=== PATIENT | female | born 1935 | race Hispanic/Latino ===

== ENCOUNTER 2017-10-29 15:28 | Inpatient (IN) | payer MEDICARE ==
--- NOTE | 2017-10-29 16:42 | Emergency Department Report ---
ED Seizure HPI - General Chief Complaint: Syncope Stated Complaint: SEIZURE LIKE ACTIVITY Time Seen by Provider: 10/29/17 16:00 Source: family, EMS Mode of arrival: Stretcher Limitations: No Limitations - History of Present Illness Initial Comments: Patient is an 82-year-old female that presented to the emergency room with new onset seizures. Patient at this time is an O 4 however does not remember any of the events prior to arriving at the hospital. Family members are at bedside and stated the patient had a seizure-like activity and did not hit her head. Family stated that patient had a postictal stage. Patient denies chest pain or shortness of breath. Patient denies any a headache. Patient denies abdominal pain. Patient states she did not have any symptoms prior to the seizure. During the seizure patient bit her tongue and lip. MD Complaint: seizure, loss of consciousness, shaking -: Sudden Description of Episode: loss of consciousness, tonic-clonic movement Witnessed:: Yes Trauma: Yes (bit tongue) Seizure History: none Place: other (at a car dealership) Possible Precipitating Event: none Associated Symptoms: denies other symptoms, tongue injury Treatments Prior to Arrival: none - Related Data Home Medications Medication Instructions Recorded Confirmed Last Taken Amitriptyline [Elavil] 75 mg PO QHS 09/27/14 09/27/14 Unknown Levothyroxine [Synthroid] 50 mcg PO DAILY 09/27/14 09/27/14 Unknown Lisinopril [Zestril TAB] 09/27/14 09/27/14 Unknown Previous Rx's Medication Instructions Recorded Last Taken Type Enoxaparin [Lovenox] 40 mg SQ QDAY #14 syringe 09/29/14 Unknown Rx Rivaroxaban [Xarelto] 10 mg PO QDAY #20 tab 09/29/14 Unknown Rx Rivaroxaban [Xarelto] 20 mg PO QDAY #14 tab 09/29/14 Unknown Rx Sulfamethoxazole/Trimethoprim 1 each PO BID #14 tablet 09/29/14 Unknown Rx [Bactrim DS TAB] Sulfamethoxazole/Trimethoprim 1 each PO BID #14 tablet 09/29/14 Unknown Rx [Bactrim DS TAB] oxyCODONE /ACETAMINOPHEN [Percocet 1 tab PO Q6HR PRN #30 tablet 09/29/14 Unknown Rx 5/325 mg] oxyCODONE /ACETAMINOPHEN [Percocet 1 tab PO Q6HR PRN #60 tablet 09/29/14 Unknown Rx 5/325 mg] Allergies Allergy/AdvReac Type Severity Reaction Status Date / Time No Known Allergies Allergy Unverified 06/16/14 12:09 ED Review of Systems ROS: Stated complaint: SEIZURE LIKE ACTIVITY Other details as noted in HPI Comment: All other systems reviewed and negative Constitutional: denies: chills, fever Eyes: denies: eye pain, eye discharge, vision change ENT: denies: ear pain, throat pain Respiratory: denies: cough, shortness of breath, wheezing Cardiovascular: denies: chest pain, palpitations Endocrine: no symptoms reported Gastrointestinal: denies: abdominal pain, nausea, diarrhea Genitourinary: denies: urgency, dysuria, discharge Musculoskeletal: denies: back pain, joint swelling, arthralgia Skin: denies: rash, lesions Neurological: denies: headache, weakness, paresthesias Psychiatric: denies: anxiety, depression Hematological/Lymphatic: denies: easy bleeding, easy bruising ED Past Medical Hx - Past Medical History Previous Medical History?: Yes Hx Hypertension: Yes Hx CVA: No Hx Heart Attack/AMI: No Hx Congestive Heart Failure: No Hx GERD: Yes Hx Liver Disease: No Hx Renal Disease: No Hx of Cancer: No Hx Arthritis: No Hx Seizures: No Hx Asthma: No Hx COPD: No Additional medical history: "balance problems". Hypothyroid - Surgical History Past Surgical History?: Yes Additional Surgical History: partial thyroidectomy, hysterectomy, tonsilectomy, left femur surgery - Family History Family history: no significant - Social History Smoking Status: Never Smoker Substance Use Type: None - Medications Home Medications: Home Medications Medication Instructions Recorded Confirmed Last Taken Type Amitriptyline [Elavil] 75 mg PO QHS 09/27/14 09/27/14 Unknown History Levothyroxine [Synthroid] 50 mcg PO DAILY 09/27/14 09/27/14 Unknown History Lisinopril [Zestril TAB] 09/27/14 09/27/14 Unknown History Enoxaparin [Lovenox] 40 mg SQ QDAY #14 syringe 09/29/14 Unknown Rx Rivaroxaban [Xarelto] 10 mg PO QDAY #20 tab 09/29/14 Unknown Rx Rivaroxaban [Xarelto] 20 mg PO QDAY #14 tab 09/29/14 Unknown Rx Sulfamethoxazole/Trimethoprim 1 each PO BID #14 tablet 09/29/14 Unknown Rx [Bactrim DS TAB] Sulfamethoxazole/Trimethoprim 1 each PO BID #14 tablet 09/29/14 Unknown Rx [Bactrim DS TAB] oxyCODONE /ACETAMINOPHEN [Percocet 1 tab PO Q6HR PRN #30 tablet 09/29/14 Unknown Rx 5/325 mg] oxyCODONE /ACETAMINOPHEN [Percocet 1 tab PO Q6HR PRN #60 tablet 09/29/14 Unknown Rx 5/325 mg] ED Physical Exam - General Limitations: No Limitations General appearance: alert, in no apparent distress - Head Head exam: Present: atraumatic, normocephalic - Eye Eye exam: Present: normal appearance - ENT ENT exam: Present: mucous membranes moist - Neck Neck exam: Present: normal inspection - Respiratory Respiratory exam: Present: normal lung sounds bilaterally. Absent: respiratory distress - Cardiovascular Cardiovascular Exam: Present: regular rate, normal rhythm. Absent: systolic murmur, diastolic murmur, rubs, gallop - GI/Abdominal GI/Abdominal exam: Present: soft, normal bowel sounds - Extremities Exam Extremities exam: Present: normal inspection - Back Exam Back exam: Present: normal inspection - Neurological Exam Neurological exam: Present: alert, oriented X3 - Psychiatric Psychiatric exam: Present: normal affect, normal mood - Skin Skin exam: Present: warm, dry, intact, normal color. Absent: rash ED Course Vital Signs 10/29/17 10/29/17 10/29/17 15:30 15:36 15:45 Temperature 97.4 F L Pulse Rate 100 H 102 H Respiratory 22 25 H Rate Blood Pressure 182/108 O2 Sat by Pulse 97 97 96 Oximetry 10/29/17 10/29/17 10/29/17 15:55 16:00 16:15 Temperature Pulse Rate 96 H 91 H Respiratory 22 21 18 Rate Blood Pressure 186/109 187/107 O2 Sat by Pulse 97 95 97 Oximetry 10/29/17 10/29/17 10/29/17 16:30 16:45 17:00 Temperature Pulse Rate 92 H 92 H 87 Respiratory 15 14 17 Rate Blood Pressure 171/97 174/90 164/91 O2 Sat by Pulse 97 96 96 Oximetry 10/29/17 10/29/17 10/29/17 17:27 17:31 17:45 Temperature Pulse Rate 95 H 96 H 97 H Respiratory 16 23 19 Rate Blood Pressure 164/91 201/105 181/110 O2 Sat by Pulse 97 95 95 Oximetry 10/29/17 10/29/17 10/29/17 18:00 18:15 18:30 Temperature Pulse Rate 91 H 91 H 91 H Respiratory 11 L 14 17 Rate Blood Pressure 183/106 173/104 187/102 O2 Sat by Pulse 95 96 95 Oximetry 10/29/17 10/29/17 10/29/17 18:45 19:00 19:15 Temperature Pulse Rate 94 H 100 H 94 H Respiratory 16 13 14 Rate Blood Pressure 184/96 182/105 193/112 O2 Sat by Pulse 97 96 96 Oximetry 10/29/17 19:30 Temperature Pulse Rate 87 Respiratory 22 Rate Blood Pressure 162/108 O2 Sat by Pulse 96 Oximetry - Reevaluation(s) Reevaluation #1: All results discussed with patient. Will continue to monitor blood pressure and try to bring down blood pressure with medications. Hospitalist consult for admission, agreed to admit. 10/29/17 18:59 ED Medical Decision Making - Lab Data Result diagrams: 10/29/17 15:50 10/29/17 16:20 - EKG Data EKG shows normal: sinus rhythm, axis, intervals, QRS complexes, ST-T waves Rate: tachycardia - Radiology Data Radiology results: report reviewed No acute findings - Medical Decision Making She is an 82-year-old female with new onset seizures. Will admit patient for further evaluation. - Differential Diagnosis new onset sz. htn. stress/med reaction. Critical care attestation.: If time is entered above; I have spent that time in minutes in the direct care of this critically ill patient, excluding procedure time. ED Disposition Clinical Impression: New onset seizure, Hypertension Disposition: OP ADMIT IP TO THIS HOSP Is pt being admited?: Yes Does the pt Need Aspirin: No Condition: Serious Time of Disposition: 19:02
[2017-10-29 16:58] LABS: Albumin 4.5 g/dL (3.9-5); BUN/Creatinine Ratio 20; Blood Urea Nitrogen 16 mg/dL (7-17); Calcium 9.5 mg/dL (8.4-10.2); Hemolysis Index 147
[2017-10-29 16:59] LABS: Creatine Kinase MB 2.2 ng/mL (0.0-4.0)
[2017-10-29 17:00] LABS: Alanine Aminotransferase 16 units/L (7-56)
[2017-10-29 17:03] LABS: Basophils % (Auto) 0.4 % (0.0-1.8); Eosinophils # (Auto) 0.2 K/mm3 (0.0-0.4); Eosinophils % (Auto) 3.3 % (0.0-4.3); Hematocrit 34.6 % (30.3-42.9); Hemoglobin 11.7 gm/dl (10.1-14.3); Lymphocytes # (Auto) 2.2 K/mm3 (1.2-5.4); Lymphocytes % (Auto) 33.7 % (13.4-35.0); Mean Corpuscular HGB Conc 34 % (30-34); Mean Corpuscular Hemoglobin 32 pg (28-32); Mean Corpuscular Volume 94 fl (79-97); Monocytes # (Auto) 0.5 K/mm3 (0.0-0.8); Monocytes % (Auto) 7.5 % (0.0-7.3); Platelet Count 319 K/mm3 (140-440); Red Blood Count 3.67 M/mm3 (3.65-5.03); Red Cell Distribution Width 14.1 % (13.2-15.2)
--- NOTE | 2017-10-29 17:36 | Cat Scan Report ---
FINAL REPORT EXAM: CT HEAD/BRAIN WO CON HISTORY: sz TECHNIQUE: CT examination of the head without IV contrast PRIORS: None. FINDINGS: Slight mucosal thickening left maxillary sinus. Minimal mucosal thickening ethmoid sinuses. Small chronic appearing lacunar infarct in left basal ganglia. No acute air-fluid level visualized in the included air-filled sinuses. Bone windows demonstrate no acute fracture. There is ventricular and sulcal prominence compatible with global cerebrocortical atrophy. The brain contains no mass, mass effect, hemorrhage, or acute infarct. There is no extra-axial intracranial bleed, brain bleed, or midline shift. IMPRESSION: No acute CVA, intracranial bleed, or brain mass Small chronic appearing lacunar infarct in left basal ganglia
[2017-10-29 18:07] LABS: Bacteria,Urine 1+ /HPF (Negative); Bilirubin,Urine NEG (Negative); Blood,Urine SM (Negative); Color,Urine Straw (Yellow); Mucus,Urine FEW /HPF; Protein,Urine <15 mg/dL mg/dL (Negative); Urobilinogen,Urine < 2.0 mg/dL (<2.0)
[2017-10-29] MEDS ORDERED: CATAPRES PO ONE (18:46)
[2017-10-29] MEDS ORDERED: APRESOLINE IV ONE (19:28)
[2017-10-29] MEDS ORDERED: NACL 0.9% 1000 ML 1,000 ML IV ONE (21:16)
--- NOTE | 2017-10-29 23:42 | Event Note ---
Date: 10/29/17
--- NOTE | 2017-10-29 23:42 | History and Physical Report ---
History of Present Illness Date of examination: 10/29/17 Date of admission: 10/29/17 19:51 Chief complaint: Chief complaint: New onset seizures 1 couple of hours ago History of present illness: History of Present Illness Patient is an 82-year-old female that presented to the emergency room with new onset seizures. Patient at this time is an O 4 however does not remember any of the events prior to arriving at the hospital. Family members are at bedside and stated the patient had a seizure-like activity and did not hit her head. Family stated that patient had a postictal stage. Patient denies chest pain or shortness of breath. Patient denies any a headache. Patient denies abdominal pain. Patient states she did not have any symptoms prior to the seizure. During the seizure patient bit her tongue and lip. - Past Medical History Previous Medical History?: Yes Hx Hypertension: Yes Hx GERD: Yes Additional medical history: "balance problems". Hypothyroid - Surgical History Past Surgical History?: Yes Additional Surgical History: partial thyroidectomy, hysterectomy, tonsilectomy, left femur surgery - Family History Family history: no significant - Social History Smoking Status: Never Smoker Substance Use Type: None - Medications Home Medications: Home Medications Medication Instructions Recorded Confirmed Last Taken Type Amitriptyline [Elavil] 75 mg PO QHS 09/27/14 09/27/14 Unknown History Levothyroxine [Synthroid] 50 mcg PO DAILY 09/27/14 09/27/14 Unknown History Lisinopril [Zestril TAB] 09/27/14 09/27/14 Unknown History Enoxaparin [Lovenox] 40 mg SQ QDAY #14 syringe 09/29/14 Unknown Rx Rivaroxaban [Xarelto] 10 mg PO QDAY #20 tab 09/29/14 Unknown Rx Rivaroxaban [Xarelto] 20 mg PO QDAY #14 tab 09/29/14 Unknown Rx Sulfamethoxazole/Trimethoprim 1 each PO BID #14 tablet 09/29/14 Unknown Rx [Bactrim DS TAB] Sulfamethoxazole/Trimethoprim 1 each PO BID #14 tablet 09/29/14 Unknown Rx [Bactrim DS TAB] oxyCODONE /ACETAMINOPHEN [Percocet 1 tab PO Q6HR PRN #30 tablet 09/29/14 Unknown Rx 5/325 mg] oxyCODONE /ACETAMINOPHEN [Percocet 1 tab PO Q6HR PRN #60 tablet 09/29/14 Unknown Rx 5/325 mg] Review of Systems ROS: Stated complaint: SEIZURE LIKE ACTIVITY Other details as noted in HPI Comment: All other systems reviewed and negative Constitutional: denies: chills, fever Eyes: denies: eye pain, eye discharge, vision change ENT: denies: ear pain, throat pain Respiratory: denies: cough, shortness of breath, wheezing Cardiovascular: denies: chest pain, palpitations Endocrine: no symptoms reported Gastrointestinal: denies: abdominal pain, nausea, diarrhea Genitourinary: denies: urgency, dysuria, discharge Musculoskeletal: denies: back pain, joint swelling, arthralgia Skin: denies: rash, lesions Neurological: denies: headache, weakness, paresthesias Psychiatric: denies: anxiety, depression Hematological/Lymphatic: denies: easy bleeding, easy bruising Medications and Allergies Allergies Allergy/AdvReac Type Severity Reaction Status Date / Time No Known Allergies Allergy Unverified 06/16/14 12:09 Home Medications Medication Instructions Recorded Confirmed Last Taken Type Carvedilol [Coreg] 6.25 mg PO BID 10/29/17 10/29/17 10/29/17 History Levothyroxine [Synthroid] 100 mcg PO QAM 10/29/17 10/29/17 10/29/17 History Losartan/Hydrochlorothiazide 1 tab PO DAILY 10/29/17 10/29/17 Unknown History [Losartan-Hctz 50-12.5 mg Tab] Nortriptyline [Pamelor] 10 mg PO QHS 10/29/17 10/29/17 Unknown History cloNIDine [Catapres] 0.1 mg PO BID 10/29/17 10/29/17 10/29/17 History Exam - Constitutional Vitals: Temp Pulse Resp BP Pulse Ox 98.7 F 71 18 84/46 95 10/29/17 21:13 10/29/17 21:13 10/29/17 21:13 10/29/17 21:13 10/29/17 21:13 General appearance: Present: no acute distress, well-nourished - EENT Eyes: Present: PERRL ENT: hearing intact, clear oral mucosa - Neck Neck: Present: supple, normal ROM - Respiratory Respiratory effort: normal Respiratory: bilateral: CTA - Cardiovascular Heart rate: 80 Rhythm: regular Heart Sounds: Present: S1 & S2. Absent: rub, click - Extremities Extremities: pulses symmetrical, No edema Peripheral Pulses: within normal limits - Abdominal General gastrointestinal: Present: soft, non-tender, non-distended, normal bowel sounds Female genitourinary: Present: normal - Integumentary Integumentary: Present: clear, warm, dry - Musculoskeletal Musculoskeletal: gait normal, strength equal bilaterally - Psychiatric Psychiatric: appropriate mood/affect, intact judgment & insight - Neurologic Neurologic: CNII-XII intact, moves all extremities - Allied Health Allied health notes reviewed: nursing, case management Results - Labs CBC & Chem 7: 10/29/17 15:50 10/29/17 16:20 Labs: Laboratory Last Values WBC 6.5 K/mm3 (4.5-11.0) 10/29/17 15:50 RBC 3.67 M/mm3 (3.65-5.03) 10/29/17 15:50 Hgb 11.7 gm/dl (10.1-14.3) 10/29/17 15:50 Hct 34.6 % (30.3-42.9) 10/29/17 15:50 MCV 94 fl (79-97) 10/29/17 15:50 MCH 32 pg (28-32) 10/29/17 15:50 MCHC 34 % (30-34) 10/29/17 15:50 RDW 14.1 % (13.2-15.2) 10/29/17 15:50 Plt Count 319 K/mm3 (140-440) 10/29/17 15:50 Lymph % (Auto) 33.7 % (13.4-35.0) 10/29/17 15:50 [place] % (Auto) 7.5 % (0.0-7.3) H 10/29/17 15:50 Eos % (Auto) 3.3 % (0.0-4.3) 10/29/17 15:50 Baso % (Auto) 0.4 % (0.0-1.8) 10/29/17 15:50 Lymph # 2.2 K/mm3 (1.2-5.4) 10/29/17 15:50 [place] # 0.5 K/mm3 (0.0-0.8) 10/29/17 15:50 Eos # 0.2 K/mm3 (0.0-0.4) 10/29/17 15:50 Baso # 0.0 K/mm3 (0.0-0.1) 10/29/17 15:50 Seg Neutrophils % 55.1 % (40.0-70.0) 10/29/17 15:50 Seg Neutrophils # 3.6 K/mm3 (1.8-7.7) 10/29/17 15:50 Sodium 134 mmol/L (137-145) L 10/29/17 16:20 Potassium 4.8 mmol/L (3.6-5.0) 10/29/17 16:20 Chloride 90.9 mmol/L (98-107) L 10/29/17 16:20 Carbon Dioxide 21 mmol/L (22-30) L 10/29/17 16:20 Anion Gap 27 mmol/L 10/29/17 16:20 BUN 16 mg/dL (7-17) 10/29/17 16:20 Creatinine 0.8 mg/dL (0.7-1.2) 10/29/17 16:20 Estimated GFR > 60 ml/min 10/29/17 16:20 BUN/Creatinine Ratio 20 % 10/29/17 16:20 Glucose 109 mg/dL (65-100) H 10/29/17 16:20 Calcium 9.5 mg/dL (8.4-10.2) 10/29/17 16:20 Total Bilirubin 0.30 mg/dL (0.1-1.2) 10/29/17 16:20 AST 28 units/L (5-40) 10/29/17 16:20 ALT 16 units/L (7-56) 10/29/17 16:20 Alkaline Phosphatase 63 units/L (35-129) 10/29/17 16:20 Total Creatine Kinase 64 units/L (30-135) 10/29/17 15:50 CK-MB (CK-2) 2.2 ng/mL (0.0-4.0) 10/29/17 15:50 CK-MB (CK-2) Rel Index 3.4 (0-4) 10/29/17 15:50 Troponin T < 0.010 ng/mL (0.00-0.029) 10/29/17 16:20 Total Protein 7.5 g/dL (6.3-8.2) 10/29/17 16:20 Albumin 4.5 g/dL (3.9-5) 10/29/17 16:20 Albumin/Globulin Ratio 1.5 % 10/29/17 16:20 Urine Color Straw (Yellow) 10/29/17 17:29 Urine Turbidity Clear (Clear) 10/29/17 17:29 Urine pH 6.0 (5.0-7.0) 10/29/17 17:29 Ur Specific Check 1.008 (1.003-1.030) 10/29/17 17:29 Urine Protein <15 mg/dl mg/dL (Negative) 10/29/17 17:29 Urine Glucose (UA) Neg mg/dL (Negative) 10/29/17 17:29 Urine Ketones Neg mg/dL (Negative) 10/29/17 17:29 Urine Blood Sm (Negative) 10/29/17 17:29 Urine Nitrite Neg (Negative) 10/29/17 17:29 Urine Bilirubin Neg (Negative) 10/29/17 17:29 Urine Urobilinogen < 2.0 mg/dL (<2.0) 10/29/17 17:29 Ur Leukocyte Esterase Tr (Negative) 10/29/17 17:29 Urine WBC (Auto) 2.0 /HPF (0.0-6.0) 10/29/17 17:29 Urine RBC (Auto) 3.0 /HPF (0.0-6.0) 10/29/17 17:29 U Epithel Cells (Auto) 2.0 /HPF (0-13.0) 10/29/17 17:29 Urine Bacteria (Auto) 1+ /HPF (Negative) 10/29/17 17:29 Urine Mucus Few /HPF 10/29/17 17:29 - Imaging and Cardiology EKG: report reviewed Imaging and Cardiology: CT head No acute CVA No intracranial bleed No brain mass Assessment and Plan Advance Directives: Yes (full code) VTE prophylaxis?: Chemical Plan of care discussed with patient/family: Yes - Patient Problems (1) New onset seizure Current Visit: Yes Status: Acute Plan to address problem: Patient started on IV Keppra MRI brain ordered Neuro consult requested (2) Hypertension, benign Current Visit: No Status: Chronic Plan to address problem: Continue antihypertensives (3) Hypothyroid Current Visit: No Status: Chronic Qualifiers: Hypothyroidism type: acquired Qualified Code(s): E03.9 - Hypothyroidism, unspecified Plan to address problem: Continue Synthroid Check TSH (4) Hyponatremia Current Visit: Yes Status: Acute Plan to address problem: Very mild. Should correct with IV fluids (5) DVT prophylaxis Current Visit: Yes Status: Acute Plan to address problem: On heparin
[2017-10-30] MEDS: COREG PO SCH ×3 (00:36→22:57)
[2017-10-30] MEDS: CATAPRES PO SCH ×3 (00:36→22:57)
[2017-10-30] MEDS: KEPPRA 750 MG in D5W 100 ML IV SCH ×3 (00:44→22:57)
[2017-10-30] MEDS: SYNTHROID PO SCH (05:21)
[2017-10-30] MEDS ORDERED: SYNTHROID PO SCH (10:00)
[2017-10-30] MEDS ORDERED: HCTZ PO SCH (10:00)
[2017-10-30] MEDS ORDERED: NON-FORMULARY (Losartan/Hydrochlorothiazide [Losartan-Hctz 50-12.5 Mg Tab] 1 TAB) PO SCH (10:00)
[2017-10-30] MEDS: COZAAR PO SCH (11:00)
--- NOTE | 2017-10-30 11:34 | Consultation ---
History of Present Illness Consult date: 10/30/17 Requesting physician: MIMI PALACIO Reason for Consult: New onset seizure. Chief complaint: Seizure. History of present illness: 82-year-old right handed female with a past medical history of hypothyroid and HTN presented to the emergency room with new onset seizures. She was in a car shop for tires replacement. Then, no aura she was in seizure like activities. She bit her tongue on the left side. It lasted minutes and she may be postictal for hours. She had one similar seizure like activities 15 years ago. She had seizure work up and negative, son she didn't take seizure medicine. Past History Past Medical History: other (hypothyroid.) Past Surgical History: hysterectomy, tonsillectomy, Other (left leg fracture and surgical procedure.) Social history: no significant social history Family history: hypertension Medications and Allergies Allergies Allergy/AdvReac Type Severity Reaction Status Date / Time No Known Allergies Allergy Unverified 06/16/14 12:09 Home Medications Medication Instructions Recorded Confirmed Last Taken Type Carvedilol [Coreg] 6.25 mg PO BID 10/29/17 10/29/17 10/29/17 History Levothyroxine [Synthroid] 100 mcg PO QAM 10/29/17 10/29/17 10/29/17 History Losartan/Hydrochlorothiazide 1 tab PO DAILY 10/29/17 10/29/17 Unknown History [Losartan-Hctz 50-12.5 mg Tab] Nortriptyline [Pamelor] 10 mg PO QHS 10/29/17 10/29/17 Unknown History cloNIDine [Catapres] 0.1 mg PO BID 10/29/17 10/29/17 10/29/17 History Active Meds: Active Medications Carvedilol (Coreg) 6.25 mg PO BID [facility] Last Admin: 10/30/17 11:00 Dose: Not Given Clonidine HCl (Catapres) 0.1 mg PO BID [facility] Last Admin: 10/30/17 10:59 Dose: Not Given Levetiracetam 750 mg/ Dextrose 107.5 mls @ 400 mls/hr IV Q12HR [facility] Last Admin: 10/30/17 10:57 Dose: 400 mls/hr Levothyroxine Sodium (Synthroid) 100 mcg PO DAILY@0600 [facility] Last Admin: 10/30/17 05:21 Dose: 100 mcg Losartan Potassium (Cozaar) 50 mg PO QDAY [facility] Last Admin: 10/30/17 11:00 Dose: Not Given Nortriptyline HCl (Pamelor) 10 mg PO QHS [facility] Review of Systems All systems: negative (left tongue bitten bruise. All otehr 10 points of systems are reviewed and negative.) Physical Examination - Vital Signs Vital Signs: Vital Signs Temp Pulse Resp BP Pulse Ox 97.4 F L 100 H 22 182/108 97 10/29/17 15:30 10/29/17 15:30 10/29/17 15:30 10/29/17 15:30 10/29/17 15:30 - Constitutional General appearance: comfortable - EENT EENT: Present: PERRL, mucous membranes moist - Respiratory Respiratory: Present: lungs clear, normal breath sounds - Cardiovascular Cardiovascular: Present: regular rate, no murmurs Extremities: Present: no peripheral edema bilatateraly, no clubbing, cyanosis, no inflammation - Gastrointestinal Gastrointestinal: Present: soft, non-tender, non-distended - Integumentary Integumentary: Present: normal - Neurologic Cranial nerve examination: PERRL, EOMI, intact Speech examination: intact Sensorimotor examination: intact Detailed motor examination: grossly full strength in Detailed sensory examination: intact Reflexes: 1+: ankle, bicep, knee, tricep - Additional Exam Additional Exam: Left side tongue bitten bruise. Rest normal examination. Results - Laboratory Findings CBC and BMP: 10/29/17 15:50 10/29/17 16:20 Abnormal Lab Findings: Abnormal Labs 10/29/17 10/29/17 15:50 16:20 [place] % (Auto) 7.5 H Sodium 134 L Chloride 90.9 L Carbon Dioxide 21 L Glucose 109 H Assessment and Plan 1. Seizure. She had one 15 years ago. This is secondary one. Probably focal seizure with conscious impairment. 2. Her primary team put her on Keppra on admission. Continue Keppra. 3. Brain MRI without contrast and EEG. 4. Don't drive a vehicle or operate heavy machinery for 6 months, always seizure precaution. 5. HTN. Controlled. Medicine. 6. Treat risk factors of CVA. Suggest Aspirin 81 mg daily if no contraindication. Carotid Doppler. 7. Plan discussed with her, her son and her hospitalist. 8. Please call [facility] neurologist if further suggestion needed. 9. If D/C, F/U with neurology in 6-8 weeks.
--- NOTE | 2017-10-30 16:33 | Progress Note ---
Assessment and Plan Assessment and plan: Patient is a 82-year-old woman with history of hypertension and hypothyroidism who presents with new onset seizures -Status epilepticus suspected resolved with initiation of Keppra: Continue Keppra -New-onset seizures: Seen by neurologist, Dr. Leigh who recommended MRI and EEG, but did not order the EEG because it is not available -HTN urgency, now low: low salt diet, adjsuted antihypertensives, gentle hydration -Hypothyroidism: treat with synthroid History Interval history: Patient was seen and examined. Follow-up on current diagnosis of seizures, resolved. Overnight uneventful. Patient denies any chest pain, shortness breath, nausea/vomiting or severe headaches. Imaging, nursing note, chart, labs and old chart reviewed. Discussed with patient. Hospitalist Physical - Physical exam Narrative exam: GEN: WDWN, NAD, AWAKE, ALERT, ORIENTATED 3 HEENT: NCAT, EOMI, PERRL, OP Clear, she bit her tongue, left lateral side not bleeding NECK: supple, no adenopathy, no thyromegaly, no JVD CVS/HEART: RRR, NORMAL S1S2, pulses present bilaterally CHEST/LUNGS: CTA B, Symmetrical chest expansion, good air entry bilaterally GI/Abdomen: soft, NTND, good bowel sounds, no guarding or rebound /Bladder: no suprapubic tenderness, no CVA or paraspinal tenderness EXT/Skin: no c/c/e, no obvious rash MSK: FROM x 4 Neuro: CN 2-12 grossly intact, no new focal deficits Psych: calm - Constitutional Vitals: Temp Pulse Resp BP Pulse Ox 98.4 F 73 18 116/58 96 10/30/17 09:12 10/30/17 11:00 10/30/17 09:12 10/30/17 11:00 10/30/17 09:12 General appearance: Present: no acute distress, well-nourished Results - Labs CBC & Chem 7: 10/29/17 15:50 10/29/17 16:20 Labs: Laboratory Last Values WBC 6.5 K/mm3 (4.5-11.0) 10/29/17 15:50 RBC 3.67 M/mm3 (3.65-5.03) 10/29/17 15:50 Hgb 11.7 gm/dl (10.1-14.3) 10/29/17 15:50 Hct 34.6 % (30.3-42.9) 10/29/17 15:50 MCV 94 fl (79-97) 10/29/17 15:50 MCH 32 pg (28-32) 10/29/17 15:50 MCHC 34 % (30-34) 10/29/17 15:50 RDW 14.1 % (13.2-15.2) 10/29/17 15:50 Plt Count 319 K/mm3 (140-440) 10/29/17 15:50 Lymph % (Auto) 33.7 % (13.4-35.0) 10/29/17 15:50 [place] % (Auto) 7.5 % (0.0-7.3) H 10/29/17 15:50 Eos % (Auto) 3.3 % (0.0-4.3) 10/29/17 15:50 Baso % (Auto) 0.4 % (0.0-1.8) 10/29/17 15:50 Lymph # 2.2 K/mm3 (1.2-5.4) 10/29/17 15:50 [place] # 0.5 K/mm3 (0.0-0.8) 10/29/17 15:50 Eos # 0.2 K/mm3 (0.0-0.4) 10/29/17 15:50 Baso # 0.0 K/mm3 (0.0-0.1) 10/29/17 15:50 Seg Neutrophils % 55.1 % (40.0-70.0) 10/29/17 15:50 Seg Neutrophils # 3.6 K/mm3 (1.8-7.7) 10/29/17 15:50 Sodium 134 mmol/L (137-145) L 10/29/17 16:20 Potassium 4.8 mmol/L (3.6-5.0) 10/29/17 16:20 Chloride 90.9 mmol/L (98-107) L 10/29/17 16:20 Carbon Dioxide 21 mmol/L (22-30) L 10/29/17 16:20 Anion Gap 27 mmol/L 10/29/17 16:20 BUN 16 mg/dL (7-17) 10/29/17 16:20 Creatinine 0.8 mg/dL (0.7-1.2) 10/29/17 16:20 Estimated GFR > 60 ml/min 10/29/17 16:20 BUN/Creatinine Ratio 20 % 10/29/17 16:20 Glucose 109 mg/dL (65-100) H 10/29/17 16:20 Calcium 9.5 mg/dL (8.4-10.2) 10/29/17 16:20 Total Bilirubin 0.30 mg/dL (0.1-1.2) 10/29/17 16:20 AST 28 units/L (5-40) 10/29/17 16:20 ALT 16 units/L (7-56) 10/29/17 16:20 Alkaline Phosphatase 63 units/L (35-129) 10/29/17 16:20 Total Creatine Kinase 64 units/L (30-135) 10/29/17 15:50 CK-MB (CK-2) 2.2 ng/mL (0.0-4.0) 10/29/17 15:50 CK-MB (CK-2) Rel Index 3.4 (0-4) 10/29/17 15:50 Troponin T < 0.010 ng/mL (0.00-0.029) 10/29/17 16:20 Total Protein 7.5 g/dL (6.3-8.2) 10/29/17 16:20 Albumin 4.5 g/dL (3.9-5) 10/29/17 16:20 Albumin/Globulin Ratio 1.5 % 10/29/17 16:20 Urine Color Straw (Yellow) 10/29/17 17:29 Urine Turbidity Clear (Clear) 10/29/17 17:29 Urine pH 6.0 (5.0-7.0) 10/29/17 17:29 Ur Specific [place] 1.008 (1.003-1.030) 10/29/17 17:29 Urine Protein <15 mg/dl mg/dL (Negative) 10/29/17 17:29 Urine Glucose (UA) Neg mg/dL (Negative) 10/29/17 17:29 Urine Ketones Neg mg/dL (Negative) 10/29/17 17:29 Urine Blood Sm (Negative) 10/29/17 17:29 Urine Nitrite Neg (Negative) 10/29/17 17:29 Urine Bilirubin Neg (Negative) 10/29/17 17:29 Urine Urobilinogen < 2.0 mg/dL (<2.0) 10/29/17 17:29 Ur Leukocyte Esterase Tr (Negative) 10/29/17 17:29 Urine WBC (Auto) 2.0 /HPF (0.0-6.0) 10/29/17 17:29 Urine RBC (Auto) 3.0 /HPF (0.0-6.0) 10/29/17 17: U Epithel Cells (Auto) 2.0 /HPF (0-13.0) 10/29/17 17:29 Urine Bacteria (Auto) 1+ /HPF (Negative) 10/29/17 17: Urine Mucus Few /HPF 10/29/17 17:29
[2017-10-30] MEDS: PROTONIX PO SCH (20:33)
[2017-10-30] MEDS ORDERED: PAMELOR PO SCH (22:00)
[2017-10-31] MEDS: SYNTHROID PO SCH (06:42)
[2017-10-31 09:26] VITALS: BP 128/75
[2017-10-31] MEDS: CATAPRES PO SCH (10:13)
[2017-10-31] MEDS: COREG PO SCH (10:14)
[2017-10-31] MEDS: COZAAR PO SCH (10:15)
[2017-10-31] MEDS: PROTONIX PO SCH (10:16)
--- NOTE | 2017-10-31 11:11 | Progress Note ---
Assessment and Plan Assessment and plan: Patient is a 82-year-old woman with history of hypertension and hypothyroidism who presents with new onset seizures -Status epilepticus suspected resolved with initiation of Keppra: Continue Keppra -New-onset seizures: Seen by neurologist, Dr. Leigh who recommended MRI and EEG, but did not order the EEG because it is not available and he is not coming back in awhile. -HTN urgency, now low: low salt diet, adjsuted antihypertensives, gentle hydration -Hypothyroidism: treat with synthroid MRI brain still pending, if negative for stroke will d/c home, with Neurologist referral. History Interval history: Patient was seen and examined. Follow-up on current diagnosis of seizures, resolved. Overnight uneventful. Patient denies any chest pain, shortness breath, nausea/vomiting or severe headaches. Imaging, nursing note, chart, labs and old chart reviewed. Discussed with patient. Hospitalist Physical - Physical exam Narrative exam: GEN: WDWN, NAD, AWAKE, ALERT, ORIENTATED 3 HEENT: NCAT, EOMI, PERRL, OP Clear, she bit her tongue, left lateral side not bleeding NECK: supple, no adenopathy, no thyromegaly, no JVD CVS/HEART: RRR, NORMAL S1S2, pulses present bilaterally CHEST/LUNGS: CTA B, Symmetrical chest expansion, good air entry bilaterally GI/Abdomen: soft, NTND, good bowel sounds, no guarding or rebound /Bladder: no suprapubic tenderness, no CVA or paraspinal tenderness EXT/Skin: no c/c/e, no obvious rash MSK: FROM x 4 Neuro: CN 2-12 grossly intact, no new focal deficits Psych: calm - Constitutional Vitals: Temp Pulse Resp BP Pulse Ox 98.5 F 62 18 128/75 95 10/31/17 09:16 10/31/17 10:15 10/31/17 09:16 10/31/17 10:15 10/31/17 09:16 General appearance: Present: no acute distress, well-nourished Results - Labs CBC & Chem 7: 10/29/17 15:50 10/29/17 16:20 Labs: Laboratory Last Values WBC 6.5 K/mm3 (4.5-11.0) 10/29/17 15:50 RBC 3.67 M/mm3 (3.65-5.03) 10/29/17 15:50 Hgb 11.7 gm/dl (10.1-14.3) 10/29/17 15:50 Hct 34.6 % (30.3-42.9) 10/29/17 15:50 MCV 94 fl (79-97) 10/29/17 15:50 MCH 32 pg (28-32) 10/29/17 15:50 MCHC 34 % (30-34) 10/29/17 15:50 RDW 14.1 % (13.2-15.2) 10/29/17 15:50 Plt Count 319 K/mm3 (140-440) 10/29/17 15:50 Lymph % (Auto) 33.7 % (13.4-35.0) 10/29/17 15:50 [place] % (Auto) 7.5 % (0.0-7.3) H 10/29/17 15:50 Eos % (Auto) 3.3 % (0.0-4.3) 10/29/17 15:50 Baso % (Auto) 0.4 % (0.0-1.8) 10/29/17 15:50 Lymph # 2.2 K/mm3 (1.2-5.4) 10/29/17 15:50 [place] # 0.5 K/mm3 (0.0-0.8) 10/29/17 15:50 Eos # 0.2 K/mm3 (0.0-0.4) 10/29/17 15:50 Baso # 0.0 K/mm3 (0.0-0.1) 10/29/17 15:50 Seg Neutrophils % 55.1 % (40.0-70.0) 10/29/17 15:50 Seg Neutrophils # 3.6 K/mm3 (1.8-7.7) 10/29/17 15:50 Sodium 134 mmol/L (137-145) L 10/29/17 16:20 Potassium 4.8 mmol/L (3.6-5.0) 10/29/17 16:20 Chloride 90.9 mmol/L (98-107) L 10/29/17 16:20 Carbon Dioxide 21 mmol/L (22-30) L 10/29/17 16:20 Anion Gap 27 mmol/L 10/29/17 16:20 BUN 16 mg/dL (7-17) 10/29/17 16:20 Creatinine 0.8 mg/dL (0.7-1.2) 10/29/17 16:20 Estimated GFR > 60 ml/min 10/29/17 16:20 BUN/Creatinine Ratio 20 % 10/29/17 16:20 Glucose 109 mg/dL (65-100) H 10/29/17 16:20 Calcium 9.5 mg/dL (8.4-10.2) 10/29/17 16:20 Total Bilirubin 0.30 mg/dL (0.1-1.2) 10/29/17 16:20 AST 28 units/L (5-40) 10/29/17 16:20 ALT 16 units/L (7-56) 10/29/17 16:20 Alkaline Phosphatase 63 units/L (35-129) 10/29/17 16:20 Total Creatine Kinase 64 units/L (30-135) 10/29/17 15:50 CK-MB (CK-2) 2.2 ng/mL (0.0-4.0) 10/29/17 15:50 CK-MB (CK-2) Rel Index 3.4 (0-4) 10/29/17 15:50 Troponin T < 0.010 ng/mL (0.00-0.029) 10/29/17 16:20 Total Protein 7.5 g/dL (6.3-8.2) 10/29/17 16:20 Albumin 4.5 g/dL (3.9-5) 10/29/17 16:20 Albumin/Globulin Ratio 1.5 % 10/29/17 16:20 Urine Color Straw (Yellow) 10/29/17 17:29 Urine Turbidity Clear (Clear) 10/29/17 17:29 Urine pH 6.0 (5.0-7.0) 10/29/17 17:29 Ur Specific [place] 1.008 (1.003-1.030) 10/29/17 17:29 Urine Protein <15 mg/dl mg/dL (Negative) 10/29/17 17:29 Urine Glucose (UA) Neg mg/dL (Negative) 10/29/17 17:29 Urine Ketones Neg mg/dL (Negative) 10/29/17 17:29 Urine Blood Sm (Negative) 10/29/17 17:29 Urine Nitrite Neg (Negative) 10/29/17 17:29 Urine Bilirubin Neg (Negative) 10/29/17 17:29 Urine Urobilinogen < 2.0 mg/dL (<2.0) 10/29/17 17:29 Ur Leukocyte Esterase Tr (Negative) 10/29/17 17:29 Urine WBC (Auto) 2.0 /HPF (0.0-6.0) 10/29/17 17:29 Urine RBC (Auto) 3.0 /HPF (0.0-6.0) 10/29/17 17:29 U Epithel Cells (Auto) 2.0 /HPF (0-13.0) 10/29/17 17:29 Urine Bacteria (Auto) 1+ /HPF (Negative) 10/29/17 17:29 Urine Mucus Few /HPF 10/29/17 17:29
--- NOTE | 2017-10-31 11:18 | Discharge Summary ---
Providers - Providers Date of Admission: 10/29/17 19:51 Date of discharge: 10/31/17 Attending physician: SHAGUFTA ORTIZ 10/29/17 23:44 Consult to Physician [CONS] Routine Comment: Consulting Provider: SONIA LEIGH Physician Instructions: Reason For Exam: New onset seizures Primary care physician: JANITOR CUSTODIAN Hospitalization Condition: Stable Hospital course: Patient is a 82-year-old woman with history of hypertension and hypothyroidism who presents with new onset seizures -Status epilepticus suspected resolved with initiation of Keppra: Continue Keppra -New-onset seizures: Seen by neurologist, Dr. Leigh who recommended MRI and EEG, but did not order the EEG because it is not available and he is not coming back in awhile. -HTN urgency, now low: low salt diet, adjsuted antihypertensives, gentle hydration -Hypothyroidism: treat with synthroid MRI brain still pending, if negative for stroke will d/c home, with Neurologist referral. Dr. Leigh did tell her not to drive for 6 months per patient Disposition: DC-01 TO HOME OR SELFCARE Time spent for discharge: 35 minutes Core Measure Documentation - Palliative Care Palliative Care/ Comfort Measures: Not Applicable - Core Measures Any of the following diagnoses?: none - VTE Discharge Requirements Deep Vein Thrombosis/Pulmonary Embolism Present on Admission: No Has pt received <5 days of overlap therapy or INR<2.0: No Anticoagulant overlap therapy prescribed at discharge: No Contraindication No Overlap Therapy order at DC: Not Indicated Exam - Physical Exam Narrative exam: GEN: WDWN, NAD, AWAKE, ALERT, ORIENTATED 3 HEENT: NCAT, EOMI, PERRL, OP Clear, she bit her tongue, left lateral side not bleeding NECK: supple, no adenopathy, no thyromegaly, no JVD CVS/HEART: RRR, NORMAL S1S2, pulses present bilaterally CHEST/LUNGS: CTA B, Symmetrical chest expansion, good air entry bilaterally GI/Abdomen: soft, NTND, good bowel sounds, no guarding or rebound /Bladder: no suprapubic tenderness, no CVA or paraspinal tenderness EXT/Skin: no c/c/e, no obvious rash MSK: FROM x 4 Neuro: CN 2-12 grossly intact, no new focal deficits Psych: calm - Constitutional Vitals: Temp Pulse Resp BP Pulse Ox 98.5 F 62 18 128/75 95 10/31/17 09:16 10/31/17 10:15 10/31/17 09:16 10/31/17 10:15 10/31/17 09:16 Plan Activity: no driving until cleared by PCP (no driving until cleared by Neurologist), other (no strenous activity until cleared by Pcp) Diet: low salt Special Instructions: record daily BP diary Follow up with: PRIMARY CARE, [Primary Care Provider] - 7 Days BARRY GROVES MD [Staff Physician] - 7 Days Prescriptions: levETIRAcetam [Keppra TAB] 750 mg PO BID #60 tablet
[2017-10-31] MEDS: KEPPRA 750 MG in D5W 100 ML IV SCH (11:26)
--- NOTE | 2017-10-31 12:57 | Magnetic Resonance Report ---
MRI scan of brain: History: Seizures. Technique: Multiplanar, multisequence images were obtained at contrast injection. Findings: No evidence of restricted diffusion. Ventricles are normal in size and midline in location. No definite evidence of acute ischemic, hemorrhage or mass. No extra-axial fluid collection. There is 2 focal areas of increase signal intensity noted at the midbrain measuring 3 mm in diameter on T2-weighted images and flair imaging. Small chronic lacunar infarct left basal ganglia. Periventricular areas of hyperintensity suggesting small vessel ischemic changes. No extra-axial fluid collection. Normal sinuses and mastoid air cells. There is focal circumscribed areas of increased signal intensity noted on T2 weighted images and decreased signal on flair imaging at the occipital region within the diploic. Impression: No acute ischemic. Subacute/chronic ischemic changes in the brainstem. Probably noninflammatory lytic lesions within the diploe of the occipital bone surrounding the cerebellum. Clinical correlation is advised. If necessary CT scan recommended..
[2017-10-31] MEDS ORDERED: KEPPRA PO SCH (22:00)
== END 2017-10-31 14:44 | disposition home or self-care (01) | DRG 101 ==
LOC: ED 15:28 → 2B-ACE 19:51
PROVIDERS: ADMIT Internal Medicine; ATTEND Internal Medicine
DX: G40.901 Epilepsy, unspecified, not intractable, with status epilepticus (principal); E87.1 Hypo-osmolality and hyponatremia; I16.0 Hypertensive urgency; I10 Essential (primary) hypertension; K21.9 Gastro-esophageal reflux disease without esophagitis; E03.9 Hypothyroidism, unspecified; Z79.899 Other long term (current) drug therapy; Z90.710 Acquired absence of both cervix and uterus; Z90.89 Acquired absence of other organs; Z79.2 Long term (current) use of antibiotics; Z82.49 Family history of ischemic heart disease and other diseases of the circulatory system
CPT/HCPCS: 36415; 70450; 70551; 80053; 81001; 82550; 82553; 84484; 85025; 93005; 93010; 93880; J1953; J7030

== ENCOUNTER 2019-12-31 17:33 | Inpatient (IN) | payer MEDICARE ==
[~2019-12-31 17:33] MED LIST: ONDANSETRON 4 MG/2 ML INJ IV ONE
[2019-12-31] MEDS ORDERED: ADENOSINE 6 MG/2 ML INJ ONE ×2 (17:43→18:43)
[2019-12-31] MEDS ORDERED: ONDANSETRON 4 MG/2 ML INJ ONE (17:47)
--- NOTE | 2019-12-31 17:57 | Emergency Department Report ---
ED Neuro Deficit HPI - General Chief Complaint: Neuro Symptoms/Deficit Stated Complaint: CVA Time Seen by Provider: 12/31/19 17:51 Source: patient, EMS Mode of arrival: Stretcher Limitations: Altered Mental Status - History of Present Illness Initial Comments: Patient is 84 years old female with history of hypertension and balance problem. Patient brought to the emergency room via EMS from home. EMS stated that patient family stated that they heard her fall and 20 minutes later they went to check on her and found her on the floor this is when they called EMS. EMS stated that when arrived patient is on the floor, unresponsive but patient gradually started to became responsive with stimuli. Patient family does not know much about patient medical history according to EMS. No known well time before this happened. In the emergency room patient is alert, oriented x3 and in no acute distress. Patient found to have a heart rate of 200. EKG showed SVT. Patient received Adenocard 6 mg and converted patient to sinus tachycardia with a rate of 128. After stabilization patient then moved to CT for CT brain and continuation for stroke protocol. -: Sudden Place: home - Related Data Home Medications: Previous Rx's Medication Instructions Recorded Last Taken Type Carvedilol [Coreg] 6.25 mg PO BID #60 18 10/29/17 Rx Levothyroxine [Synthroid] 100 mcg PO QAM #30 10/31/17 10/29/17 Rx Losartan/Hydrochlorothiazide 1 tab PO DAILY #30 10/31/17 Unknown Rx [Losartan-Hctz 50-12.5 mg Tab] Nortriptyline [Pamelor] 10 mg PO QHS #30 10/31/17 Unknown Rx cloNIDine [Catapres] 0.1 mg PO BID #60 18 10/29/17 Rx levETIRAcetam [Keppra TAB] 750 mg PO BID #60 tablet 10/31/17 Unknown Rx Allergies/Adverse Reactions: Allergies Allergy/AdvReac Type Severity Reaction Status Date / Time No Known Allergies Allergy Unverified 06/16/14 12:09 ED Review of Systems ROS: Stated complaint: CVA Other details as noted in HPI Comment: All other systems reviewed and negative Constitutional: denies: chills, fever Respiratory: denies: cough, shortness of breath, SOB with exertion Cardiovascular: denies: chest pain Gastrointestinal: denies: abdominal pain Musculoskeletal: denies: back pain Neurological: denies: headache, weakness, numbness, paresthesias, confusion, abnormal gait ED Past Medical Hx - Past Medical History Previous Medical History?: Yes Hx Hypertension: Yes Hx CVA: No Hx Heart Attack/AMI: No Hx Congestive Heart Failure: No Hx GERD: Yes Hx Liver Disease: No Hx Renal Disease: No Hx Arthritis: No Hx Seizures: No Hx Asthma: No Hx COPD: No Additional medical history: "balance problems". Hypothyroid - Surgical History Past Surgical History?: Yes Additional Surgical History: partial thyroidectomy, hysterectomy, tonsilectomy, left femur surgery - Social History Smoking Status: Never Smoker - Medications Home Medications: Home Medications Medication Instructions Recorded Confirmed Last Taken Type Carvedilol [Coreg] 6.25 mg PO BID #60 10/31/17 12/31/19 10/29/17 Rx Levothyroxine [Synthroid] 100 mcg PO QAM #30 10/31/17 12/31/19 10/29/17 Rx Losartan/Hydrochlorothiazide 1 tab PO DAILY #30 10/31/17 12/31/19 Unknown Rx [Losartan-Hctz 50-12.5 mg Tab] Nortriptyline [Pamelor] 10 mg PO QHS #30 10/31/17 12/31/19 Unknown Rx cloNIDine [Catapres] 0.1 mg PO BID #60 10/31/17 12/31/19 10/29/17 Rx levETIRAcetam [Keppra TAB] 750 mg PO BID #60 tablet 10/31/17 12/31/19 Unknown Rx ED Neuro Physical Exam - General Limitations: Altered Mental Status General appearance: alert, in no apparent distress Suspected Stroke: Yes - Head Head exam: Present: other (hematoma to scalp.) - Eye Eye exam: Present: normal appearance, PERRL - ENT ENT exam: Present: normal exam, normal orophraynx, mucous membranes moist - Neck Neck exam: Present: normal inspection, full ROM. Absent: tenderness, meningismus, lymphadenopathy, thyromegaly - Respiratory Respiratory exam: Present: normal lung sounds bilaterally - Cardiovascular Cardiovascular Exam: Present: regular rate, normal rhythm, normal heart sounds - GI/Abdominal GI/Abdominal exam: Present: soft, normal bowel sounds. Absent: distended, tenderness, guarding, rebound, rigid, organomegaly, mass, bruit, pulsatile mass, hernia - Extremities Exam Extremities exam: Present: normal inspection, full ROM, normal capillary refill. Absent: pedal edema, calf tenderness - Back Exam Back exam: Present: normal inspection, full ROM. Absent: CVA tenderness (R), CVA tenderness (L) - Neurological Exam Neurological exam: Present: alert, oriented X3 - NIHSS Assessment Interval: Baseline 1a. Level of Consciousness: alert/keenly responsive 1b. LOC Questions: answers both correctly 1c. LOC Commands: performs tasks correctly 2. Best Gaze: normal 3. Visual: no visual loss 4. Facial Palsy: normal symmetrical movement 5b. Motor Arm Right: no drift 5a. Motor Arm Left: no drift 6a. Motor Leg Left: no drift 6b. Motor Leg Right: no drift 7. Limb Ataxia: absent 8. Sensory: mild/moderate sensory loss 9. Best Language: no aphasia 10. Dysarthria: normal 11. Extinction/Inattention: no abnormality Total Score: 1 Stroke Severity: Minor Stroke - Psychiatric Psychiatric exam: Present: normal mood - Skin Skin exam: Present: warm, dry ED Course Vital Signs 12/31/19 12/31/19 12/31/19 17:40 19:23 19:41 Temperature Pulse Rate 200 H 200 H 95 H Respiratory 18 Rate Blood Pressure 88/62 119/58 Blood Pressure 135/85 [Left] O2 Sat by Pulse 97 Oximetry 12/31/19 12/31/19 21:44 22:37 Temperature 98.1 F Pulse Rate 91 H 87 Respiratory 18 15 Rate Blood Pressure Blood Pressure 121/61 [Left] O2 Sat by Pulse 94 95 Oximetry - Lab Data Result diagrams: 12/31/19 18:01 01/01/20 04:13 Lab Results 12/31/19 12/31/19 12/31/19 Range/Units 18:01 18:01 18:01 WBC 11.8 H (4.5-11.0) K/mm3 RBC 3.79 (3.65-5.03) M/mm3 Hgb 11.7 (10.1-14.3) gm/dl Hct 34.5 (30.3-42.9) % MCV 91 (79-97) fl MCH 31 (28-32) pg MCHC 34 (30-34) % RDW 12.8 L (13.2-15.2) % Plt Count 522 H (140-440) K/mm3 Add Manual Diff Complete Total Counted 100 Seg Neuts % (Manual) 67.0 (40.0-70.0) % Band Neutrophils % 0 % Lymphocytes % (Manual) 19.0 (13.4-35.0) % Reactive Lymphs % (Man) 0 % Monocytes % (Manual) 8.0 H (0.0-7.3) % Eosinophils % (Manual) 3.0 (0.0-4.3) % Basophils % (Manual) 3.0 H (0.0-1.8) % Metamyelocytes % 0 % Myelocytes % 0 % Promyelocytes % 0 % Blast Cells % 0 % Nucleated RBC % Not Reportable Seg Neutrophils # Man 7.9 H (1.8-7.7) K/mm3 Band Neutrophils # 0.0 K/mm3 Lymphocytes # (Manual) 2.2 (1.2-5.4) K/mm3 Abs React Lymphs (Man) 0.0 K/mm3 Monocytes # (Manual) 0.9 H (0.0-0.8) K/mm3 Eosinophils # (Manual) 0.4 (0.0-0.4) K/mm3 Basophils # (Manual) 0.4 H (0.0-0.1) K/mm3 Metamyelocytes # 0.0 K/mm3 Myelocytes # 0.0 K/mm3 Promyelocytes # 0.0 K/mm3 Blast Cells # 0.0 K/mm3 WBC Morphology Not Reportable Hypersegmented Neuts Not Reportable Hyposegmented Neuts Not Reportable Hypogranular Neuts Not Reportable Smudge Cells Not Reportable Toxic Granulation Not Reportable Toxic Vacuolation Not Reportable Dohle Bodies Not Reportable Pelger-Huet Anomaly Not Reportable Nikki Rods Not Reportable Platelet Estimate Not Reportable Clumped Platelets Not Reportable Plt Clumps, EDTA Not Reportable Large Platelets Not Reportable Giant Platelets Not Reportable Platelet Satelliting Not Reportable Plt Morphology Comment Not Reportable RBC Morphology Normal Dimorphic RBCs Not Reportable Polychromasia Not Reportable Hypochromasia Not Reportable Poikilocytosis Not Reportable Anisocytosis Not Reportable Microcytosis Not Reportable Macrocytosis Not Reportable Spherocytes Not Reportable Pappenheimer Bodies Not Reportable Sickle Cells Not Reportable Target Cells Not Reportable Tear Drop Cells Not Reportable Ovalocytes Not Reportable Helmet Cells Not Reportable Chavarria-Seabeck Bodies Not Reportable Burns Rings Not Reportable [place] Cells Not Reportable Bite Cells Not Reportable Crenated Cell Not Reportable Elliptocytes Not Reportable Acanthocytes (Spur) Not Reportable Rouleaux Not Reportable Hemoglobin C Crystals Not Reportable Schistocytes Not Reportable Malaria parasites Not Reportable Andi Bodies Not Reportable Hem Pathologist Commnt No PT 13.1 (12.2-14.9) Sec. INR 0.98 (0.87-1.13) APTT 43.4 H (24.2-36.6) Sec. Thrombin Time 13.3 L (15.1-19.6) Sec. Sodium 121 L (137-145) mmol/L Potassium 3.9 (3.6-5.0) mmol/L Chloride 83.1 L (98-107) mmol/L Carbon Dioxide 17 L (22-30) mmol/L Anion Gap 25 mmol/L BUN 14 (7-17) mg/dL Creatinine 1.0 (0.7-1.2) mg/dL Estimated GFR 53 ml/min BUN/Creatinine Ratio 14 % Glucose 151 H (65-100) mg/dL Calcium 9.9 (8.4-10.2) mg/dL Total Bilirubin (0.1-1.2) mg/dL Direct Bilirubin (0-0.2) mg/dL Indirect Bilirubin mg/dL AST (5-40) units/L ALT (7-56) units/L Alkaline Phosphatase (35-129) units/L Ammonia (25-60) umol/L Total Creatine Kinase 57 (30-135) units/L CK-MB (CK-2) 3.1 (0.0-4.0) ng/mL CK-MB (CK-2) Rel Index 5.4 H (0-4) Troponin T < 0.010 (0.00-0.029) ng/mL Total Protein (6.3-8.2) g/dL Albumin (3.9-5) g/dL Albumin/Globulin Ratio % 12/31/19 12/31/19 Range/Units 18:01 18:11 WBC (4.5-11.0) K/mm3 RBC (3.65-5.03) M/mm3 Hgb (10.1-14.3) gm/dl Hct (30.3-42.9) % MCV (79-97) fl MCH (28-32) pg MCHC (30-34) % RDW (13.2-15.2) % Plt Count (140-440) K/mm3 Add Manual Diff Total Counted Seg Neuts % (Manual) (40.0-70.0) % Band Neutrophils % % Lymphocytes % (Manual) (13.4-35.0) % Reactive Lymphs % (Man) % Monocytes % (Manual) (0.0-7.3) % Eosinophils % (Manual) (0.0-4.3) % Basophils % (Manual) (0.0-1.8) % Metamyelocytes % % Myelocytes % % Promyelocytes % % Blast Cells % % Nucleated RBC % Seg Neutrophils # Man (1.8-7.7) K/mm3 Band Neutrophils # K/mm3 Lymphocytes # (Manual) (1.2-5.4) K/mm3 Abs React Lymphs (Man) K/mm3 Monocytes # (Manual) (0.0-0.8) K/mm3 Eosinophils # (Manual) (0.0-0.4) K/mm3 Basophils # (Manual) (0.0-0.1) K/mm3 Metamyelocytes # K/mm3 Myelocytes # K/mm3 Promyelocytes # K/mm3 Blast Cells # K/mm3 WBC Morphology Hypersegmented Neuts Hyposegmented Neuts Hypogranular Neuts Smudge Cells Toxic Granulation Toxic Vacuolation Dohle Bodies Pelger-Huet Anomaly Nikki Rods Platelet Estimate Clumped Platelets Plt Clumps, EDTA Large Platelets Giant Platelets Platelet Satelliting Plt Morphology Comment RBC Morphology Dimorphic RBCs Polychromasia Hypochromasia Poikilocytosis Anisocytosis Microcytosis Macrocytosis Spherocytes Pappenheimer Bodies Sickle Cells Target Cells Tear Drop Cells Ovalocytes Helmet Cells Chavarria-Seabeck Bodies Burns Rings [place] Cells Bite Cells Crenated Cell Elliptocytes Acanthocytes (Spur) Rouleaux Hemoglobin C Crystals Schistocytes Malaria parasites Andi Bodies Hem Pathologist Commnt PT (12.2-14.9) Sec. INR (0.87-1.13) APTT (24.2-36.6) Sec. Thrombin Time (15.1-19.6) Sec. Sodium (137-145) mmol/L Potassium (3.6-5.0) mmol/L Chloride (98-107) mmol/L Carbon Dioxide (22-30) mmol/L Anion Gap mmol/L BUN (7-17) mg/dL Creatinine (0.7-1.2) mg/dL Estimated GFR ml/min BUN/Creatinine Ratio % Glucose (65-100) mg/dL Calcium (8.4-10.2) mg/dL Total Bilirubin 0.50 (0.1-1.2) mg/dL Direct Bilirubin < 0.2 (0-0.2) mg/dL Indirect Bilirubin 0.3 mg/dL AST 23 (5-40) units/L ALT 14 (7-56) units/L Alkaline Phosphatase 83 (35-129) units/L Ammonia 46.0 (25-60) umol/L Total Creatine Kinase (30-135) units/L CK-MB (CK-2) (0.0-4.0) ng/mL CK-MB (CK-2) Rel Index (0-4) Troponin T (0.00-0.029) ng/mL Total Protein 7.0 (6.3-8.2) g/dL Albumin 3.9 (3.9-5) g/dL Albumin/Globulin Ratio 1.3 % - EKG Data -: EKG Interpreted by Il Rate: tachycardia 12/31/19 20:12 SVT with a heart rate of 200 - Radiology Data Radiology results: report reviewed - Medical Decision Making Patient is 84 years old female with history of hypertension and balance problem. Patient brought to the emergency room via EMS from home. EMS stated that patient family stated that they heard her fall and 20 minutes later they went to check on her and found her on the floor this is when they called EMS. EMS stated that when arrived patient is on the floor, unresponsive but patient gra dually started to became responsive with stimuli. Patient family does not know much about patient medical history according to EMS. No known well time before this happened. In the emergency room patient is alert, oriented x3 and in no acute distress. Patient found to have a heart rate of 200. EKG showed SVT. Patient received Adenocard 6 mg and converted patient to sinus tachycardia with a rate of 128. After stabilization patient then moved to CT for CT brain and continuation for stroke protocol. CT brain is negative for acute finding. Patient has been seen by stroke telemetry neurology , he stated that patient is not a TPA candidate. Patient heart rate went again to 190. Patient received Adenocard twice 6 and 12 with transient improvement in the heart rate. Patient given 10 mg of Cardizem and started on Cardizem drip. Patient heart rate now is 91 beats per minutes. Patient remained stable through all this process. Labs reviewed and showed a hyponatremia sodium of 120. Patient started on normal saline. Chest x-ray is unremarkable. CT cervical spine is negative for acute finding. I discussed the patient with Dr. Li, he agreed to admit the patient to medical service for further management. Critical Care Time: Yes Critical care time in (mins) excluding proc time.: 45 Critical care attestation.: If time is entered above; I have spent that time in minutes in the direct care o f this critically ill patient, excluding procedure time. ED Disposition Clinical Impression: Syncope and collapse, SVT (supraventricular tachycardia), Hyponatremia, Altered mental status Disposition: [id number] OP ADMIT IP TO THIS HOSP Is pt being admited?: Yes Condition: Stable
[2019-12-31 18:07] LABS: Hematocrit 34.5 % (30.3-42.9); Hemoglobin 11.7 gm/dl (10.1-14.3); Mean Corpuscular HGB Conc 34 % (30-34); Mean Corpuscular Volume 91 fl (79-97); Platelet Count 522 K/mm3 (140-440); Red Blood Count 3.79 M/mm3 (3.65-5.03); Red Cell Distribution Width 12.8 % (13.2-15.2)
[2019-12-31 18:11] LABS: INR 0.98 (0.87-1.13)
[2019-12-31 18:12] LABS: Thrombin Time 13.3 Sec. (15.1-19.6)
[2019-12-31 18:13] LABS: Partial Thromboplastin Time 43.4 Sec. (24.2-36.6)
[2019-12-31 18:18] LABS: Creatine Kinase MB 3.1 ng/mL (0.0-4.0)
[2019-12-31 18:19] LABS: BUN/Creatinine Ratio 14; Blood Urea Nitrogen 14 mg/dL (7-17); Calcium 9.9 mg/dL (8.4-10.2); Hemolysis Index 48
[2019-12-31 18:20] LABS: Alanine Aminotransferase 14 units/L (7-56); Albumin 3.9 g/dL (3.9-5)
[2019-12-31 18:21] LABS: Bilirubin,Direct < 0.2 mg/dL (0-0.2)
--- NOTE | 2019-12-31 18:27 | Cat Scan Report ---
CT head/brain wo con INDICATION / CLINICAL INFORMATION: 84 years Female; MAIN: Stroke symptoms CODE STROKE PT IS UNRESPONSIVE ON BACKBOARD--PT ALSO HAS CT C -SPINE COMING #[id number]. TECHNIQUE: Routine CT head without contrast. All CT scans at this location are performed using CT dos e reduction for ALARA by means of automated exposure control. Suboptimal patient positioning somewhat limits scan COMPARISON: 10/29/2017 FINDINGS: BRAIN / INTRACRANIAL CONTENTS: No acute hemorrhage, mass effect, midline shift, hydrocephalus, or acu te, large territorial infarct. Minimal cerebral atrophy. There are mild areas of decreased attenuation in the white matter of the cerebral hemispheres. These are nonspecific findings and may be related to microangiopathy (hypertension, diabetes, atheroscleros is), given the patient's age. It might be difficult to evaluate for small areas of ischemia without d iffusion imaging by MRI. CRANIOCERVICAL JUNCTION: No significant abnormality. ORBITS: No significant abnormality of visualized orbits. SINUSES / MASTOIDS: No significant abnormality the visualized paranasal sinuses or mastoid air cells. ADDITIONAL FINDINGS: Degenerative changes seen in the upper cervical spine. Atherosclerotic disease is seen in the anterior circulation. IMPRESSION: 1. No focal mass, hemorrhage, hydrocephalus, or acute, large territorial infarct. This exam was performed as part of a code stroke protocol. The exam was completed on 12/31/2019 5:16 P M, central time. The exam was reviewed at 5:[address] Chacko was notified at 5:22 PM. Signer Name: Justen Sanderson MD, III Signed: 12/31/2019 6:23 PM Workstation Name: [id number]
[2019-12-31] MEDS ORDERED: SODIUM CHLORIDE 0.9% 1000 ML 1,000 ML IV ONE (18:34)
--- NOTE | 2019-12-31 18:36 | Emergency Department Report ---
ED Neuro Deficit HPI - General Chief Complaint: Neuro Symptoms/Deficit Stated Complaint: CVA Time Seen by Provider: 12/31/19 17:51 Source: patient, EMS Mode of arrival: Stretcher Limitations: Altered Mental Status - History of Present Illness Initial Comments: [facility] Date of Service: 12/31/2019 17:29:15 Impression: Rule Out Acute Ischemic Stroke Comments/Sign-Out: 84 year old female who presented after a syncopal episode. Patient has had syncopal episodes in the past and on arrival was in SVT. Presentation likely secondary to syncope rather than acute stroke. Mechanism of Stroke: Not Clear Metrics: Last Known Well: 12/31/2019 15:30:00 [facility] Notification Time: 12/31/2019 17:27:56 Arrival Time: 12/31/2019 17:33:00 Stamp Time: 12/31/2019 17:29:15 Time First Login Attempt: 12/31/2019 17:35:00 Video Start Time: 12/31/2019 17:35:00 Symptoms: syncope NIHSS Start Assessment Time: 12/31/2019 17:45:00 Patient is not a candidate for tPA. Patient was not deemed candidate for tPA thrombolytics because of rapidly improving symptoms and head trauma -- patient fell and hit her head and was unresponsive. . Video End Time: 12/31/2019 18:13:15 CT head showed no acute hemorrhage or acute core infarct. Clinical Presentation is not Suggestive of Large Vessel Occlusive Disease ED Physician notified of diagnostic impression and management plan on 12/31/2019 18:25:08 Our recommendations are outlined below. Recommendations: Activate Stroke Protocol Admission/Order Set Stroke/Telemetry Floor Neuro Checks Bedside Swallow Eval DVT Prophylaxis IV Fluids, Normal Saline Head of Bed 30 Degrees Euglycemia and Avoid Hyperthermia (PRN Acetaminophen) Antiplatelet Therapy Recommended Routine Consultation with Inhouse Neurology for Follow up Care Sign Out: Discussed with Emergency Department Provider History of Present Illness: Patient is a 81 year old Female. Patient was brought by EMS for symptoms of syncope 84 year old female who presented to the hospital after she was found down. Patient's son saw her normal around 15:30 and then around 16:10 he heard her fall on the ground in the kitchen. When he went to check on her she was unresponsive and there was blood on her head. In the ED patient became more responsive and there was no obvious focal weakness or numbness noted. Examination: 1A: Level of Consciousness - Alert; keenly responsive + 0 1B: Ask Month and Age - Both Questions Right + 0 1C: Blink Eyes & Squeeze Hands - Performs Both Tasks + 0 2: Test Horizontal Extraocular Movements - Normal + 0 3: Test Visual Scott - No Visual Loss + 0 4: Test Facial Palsy (Use Grimace if Obtunded) - Normal symmetry + 0 5A: Test Left Arm Motor Drift - No Drift for 10 Seconds + 0 5B: Test Right Arm Motor Drift - No Drift for 10 Seconds + 0 6A: Test Left Leg Motor Drift - No Drift for 5 Seconds + 0 6B: Test Right Leg Motor Drift - No Drift for 5 Seconds + 0 7: Test Limb Ataxia (FNF/Heel-Carlson) - No Ataxia + 0 8: Test Sensation - Mild-Moderate Loss: Less Sharp/More Dull + 1 9: Test Language/Aphasia - Normal; No aphasia + 0 10: Test Dysarthria - Normal + 0 11: Test Extinction/Inattention - No abnormality + 0 NIHSS Score: 1 Due to the immediate potential for life-threatening deterioration due to underl santi acute neurologic illness, I spent 35 minutes providing critical care. This time includes time for face to face visit via telemedicine, review of medical records, imaging studies and discussion of findings with providers, the patient and/or family. Dr Leatha [facility] Case [id number] Place: home - Related Data Home Medications: Previous Rx's Medication Instructions Recorded Last Taken Type Carvedilol [Coreg] 6.25 mg PO BID #60 10/31/17 10/29/17 Rx Levothyroxine [Synthroid] 100 mcg PO QAM #30 10/31/17 10/29/17 Rx Losartan/Hydrochlorothiazide 1 tab PO DAILY #30 10/31/17 Unknown Rx [Losartan-Hctz 50-12.5 mg Tab] Nortriptyline [Pamelor] 10 mg PO QHS #30 10/31/17 Unknown Rx cloNIDine [Catapres] 0.1 mg PO BID #60 10/31/17 10/29/17 Rx levETIRAcetam [Keppra TAB] 750 mg PO BID #60 tablet 10/31/17 Unknown Rx Allergies/Adverse Reactions: Allergies Allergy/AdvReac Type Severity Reaction Status Date / Time No Known Allergies Allergy Unverified 06/16/14 12:09 ED Review of Systems ROS: Stated complaint: CVA Other details as noted in HPI Constitutional: denies: chills, fever Respiratory: denies: cough, shortness of breath, SOB with exertion Cardiovascular: denies: chest pain Gastrointestinal: denies: abdominal pain Musculoskeletal: denies: back pain Neurological: denies: headache, weakness, numbness, paresthesias, confusion, abnormal gait ED Past Medical Hx - Past Medical History Previous Medical History?: Yes Hx Hypertension: Yes Hx CVA: No Hx Heart Attack/AMI: No Hx Congestive Heart Failure: No Hx GERD: Yes Hx Liver Disease: No Hx Renal Disease: No Hx Arthritis: No Hx Seizures: No Hx Asthma: No Hx COPD: No Additional medical history: "balance problems". Hypothyroid - Surgical History Past Surgical History?: Yes Additional Surgical History: partial thyroidectomy, hysterectomy, tonsilectomy, left femur surgery - Social History Smoking Status: Never Smoker - Medications Home Medications: Home Medications Medication Instructions Recorded Confirmed Last Taken Type Carvedilol [Coreg] 6.25 mg PO BID #60 10/31/17 10/29/17 10/29/17 Rx Levothyroxine [Synthroid] 100 mcg PO QAM #30 10/31/17 10/29/17 10/29/17 Rx Losartan/Hydrochlorothiazide 1 tab PO DAILY #30 10/31/17 10/29/17 Unknown Rx [Losartan-Hctz 50-12.5 mg Tab] Nortriptyline [Pamelor] 10 mg PO QHS #30 10/31/17 10/29/17 Unknown Rx cloNIDine [Catapres] 0.1 mg PO BID #60 10/31/1718 10/29/17 Rx levETIRAcetam [Keppra TAB] 750 mg PO BID #60 tablet 10/31/17 Unknown Rx ED Neuro Physical Exam - General Limitations: Altered Mental Status General appearance: alert, in no apparent distress Suspected Stroke: Yes - NIHSS Assessment Interval: Baseline 1a. Level of Consciousness: alert/keenly responsive 1b. LOC Questions: answers both correctly 1c. LOC Commands: performs tasks correctly 2. Best Gaze: normal 3. Visual: no visual loss 4. Facial Palsy: normal symmetrical movement 5b. Motor Arm Right: no drift 5a. Motor Arm Left: no drift 6a. Motor Leg Left: no gravity effort (Limited exam because she is on C-spine precautions) 6b. Motor Leg Right: no gravity effort 7. Limb Ataxia: absent 8. Sensory: normal 9. Best Language: no aphasia 10. Dysarthria: normal 11. Extinction/Inattention: no abnormality Total Score: 6 Stroke Severity: Moderate Stroke ED Course Vital Signs 12/31/19 17:40 Pulse Rate 200 H Respiratory 18 Rate Blood Pressure 135/85 [Left] O2 Sat by Pulse 97 Oximetry - Lab Data Result diagrams: 12/31/19 18:01 12/31/19 18:01 Lab Results 12/31/19 12/31/19 12/31/19 Range/Units 18:01 18:01 18:01 WBC 11.8 H (4.5-11.0) K/mm3 RBC 3.79 (3.65-5.03) M/mm3 Hgb 11.7 (10.1-14.3) gm/dl Hct 34.5 (30.3-42.9) % MCV 91 (79-97) fl MCH 31 (28-32) pg MCHC 34 (30-34) % RDW 12.8 L (13.2-15.2) % Plt Count 522 H (140-440) K/mm3 PT 13.1 (12.2-14.9) Sec. INR 0.98 (0.87-1.13) APTT 43.4 H (24.2-36.6) Sec. Thrombin Time 13.3 L (15.1-19.6) Sec. Sodium 121 L (137-145) mmol/L Potassium 3.9 (3.6-5.0) mmol/L Chloride 83.1 L (98-107) mmol/L Carbon Dioxide 17 L (22-30) mmol/L Anion Gap 25 mmol/L BUN 14 (7-17) mg/dL Creatinine 1.0 (0.7-1.2) mg/dL Estimated GFR 53 ml/min BUN/Creatinine Ratio 14 % Glucose 151 H (65-100) mg/dL Calcium 9.9 (8.4-10.2) mg/dL Total Bilirubin (0.1-1.2) mg/dL Direct Bilirubin (0-0.2) mg/dL Indirect Bilirubin mg/dL AST (5-40) units/L ALT (7-56) units/L Alkaline Phosphatase (35-129) units/L Total Creatine Kinase 57 (30-135) units/L CK-MB (CK-2) 3.1 (0.0-4.0) ng/mL CK-MB (CK-2) Rel Index 5.4 H (0-4) Troponin T < 0.010 (0.00-0.029) ng/mL Total Protein (6.3-8.2) g/dL Albumin (3.9-5) g/dL Albumin/Globulin Ratio % 05/16/20 Range/Units 18:01 WBC (4.5-11.0) K/mm3 RBC (3.65-5.03) M/mm3 Hgb (10.1-14.3) gm/dl Hct (30.3-42.9) % MCV (79-97) fl MCH (28-32) pg MCHC (30-34) % RDW (13.2-15.2) % Plt Count (140-440) K/mm3 PT (12.2-14.9) Sec. INR (0.87-1.13) APTT (24.2-36.6) Sec. Thrombin Time (15.1-19.6) Sec. Sodium (137-145) mmol/L Potassium (3.6-5.0) mmol/L Chloride (98-107) mmol/L Carbon Dioxide (22-30) mmol/L Anion Gap mmol/L BUN (7-17) mg/dL Creatinine (0.7-1.2) mg/dL Estimated GFR ml/min BUN/Creatinine Ratio % Glucose (65-100) mg/dL Calcium (8.4-10.2) mg/dL Total Bilirubin 0.50 (0.1-1.2) mg/dL Direct Bilirubin < 0.2 (0-0.2) mg/dL Indirect Bilirubin 0.3 mg/dL AST 23 (5-40) units/L ALT 14 (7-56) units/L Alkaline Phosphatase 83 (35-129) units/L Total Creatine Kinase (30-135) units/L CK-MB (CK-2) (0.0-4.0) ng/mL CK-MB (CK-2) Rel Index (0-4) Troponin T (0.00-0.029) ng/mL Total Protein 7.0 (6.3-8.2) g/dL Albumin 3.9 (3.9-5) g/dL Albumin/Globulin Ratio 1.3 % Critical care attestation.: If time is entered above; I have spent that time in minutes in the direct care of this critically ill patient, excluding procedure time. ED Disposition Clinical Impression: Syncope and collapse Disposition: 09 OP ADMIT IP TO THIS HOSP Is pt being admited?: Yes Does the pt Need Aspirin: Yes Condition: Stable Instructions: Syncope (ED)
[2019-12-31 18:42] LABS: RBC Morphology Normal; Total Cells Counted 100
[2019-12-31] MEDS ORDERED: dilTIAZem 25 MG/5 ML INJ ONE (18:46)
[2019-12-31] MEDS ORDERED: dilTIAZem 25 MG/5 ML INJ IV ONE (18:53)
[2019-12-31] MEDS ORDERED: dilTIAZem/D5W 100 MG/100 ML BAG IV SCH (19:00)
[2019-12-31] MEDS ORDERED: ADENOSINE 6 MG/2 ML INJ IV ONE ×4 (19:12→19:24)
--- NOTE | 2019-12-31 19:19 | Cat Scan Report ---
CT cervical spine wo con INDICATION / CLINICAL INFORMATION: 84 years Female; MAIN: NECK INJURY also code stroke pt pt is unresponsive on backboard. TECHNIQUE: Axial CT images of the cervical spine were obtained. Sagittal and coronal reformatted images were pr oduced. All CT scans at this location are performed using CT dose reduction for ALARA by means of aut omated exposure control. COMPARISON: None available. FINDINGS: POST-SURGICAL CHANGES: None. ALIGNMENT: There is excessive lordosis seen, which may be related to patient positioning. There is sl ight retrolisthesis of C5 with respect to C4 and C6, which appears to be on a degenerative basis. VERTEBRAE: No signs of fracture. Vertebral bodies are grossly normal in height throughout. There is osseous foraminal narrowing on the left at C3-4, C4-5, and C5-6 related to facet and uncinat e hypertrophy. Similar findings seen on the right at C3-4, C4-5, and C5-C6. Most marked findings are on the right at C3-4. Multilevel moderate facet hypertrophy is seen. Most marked findings are on the right at C3-4, where t here is a significantly widened facet joint space identified. There may have been prior facet infecti on at this level, although no definitive signs of acute process appreciated-there is suggestion of th is finding on prior MRI from 10/31/2017. However, the widened facet appearance is not seen on prior CT facial bones from 06/16/2014. INTRAVERTEBRAL DISCS: Disc space narrowing seen at C5-6. Overall, no significant canal stenosis appre ciated. PARASPINAL SOFT TISSUES: No significant abnormality. ADDITIONAL FINDINGS: Prior thyroid surgery suggested-right lobe resection. Surgical clips are noted i n the right thyroid bed. Increased interstitial markings seen in the lung apices. Patchy airspace disease seen in the left upp er lobe as well. IMPRESSION: 1. No definitive signs of acute bony trauma to the cervical spine. Signer Name: Justen Sanderson MD, III Signed: 12/31/2019 7:15 PM Workstation Name: [id number]
--- NOTE | 2019-12-31 19:25 | History and Physical Report ---
History of Present Illness Chief complaint: she was not acting like herself and then we found her on the floor History of present illness: 84 YO Female with HTN, Hypothyroidism, GERD presents to ED for evaluation. Patient is confused and unable to provide detailed history. Patient history taken from EMS staff, ED staff, and family members who are in the home at the time. As per family the patient has experienced confusion that began today and approximately 20 minutes after the onset of acute confusion the patient was found on the floor by her family. EMS was notified and upon arrival the patient was found to be confused and in distress. The patient was transported to [facility] for further evaluation and care. Patient seen and evaluated in the emergency department. Lab and imaging studies reviewed. Patient underwent routine EKG and was found to have supraventricular tachycardia. Patient was treated with m ultiple doses of adenosine without conversion. Patient was initiated on Cardizem drip with improvement in patient heart rate. Cardiology team consulted in ED. Patient admitted to ICU for medical stabilization due to increased risk of cardiac decompensation. Echocardiogram is pending at the time of the admission. No reports of fever, chills, chest pain, palpitation, productive cough, skin rash, recent ill contacts, or known exposure to COVID-19. Advanced care planning conducted in ED. patient is confused at time of my exam but has positive gag reflex and is able to protect her airway. Cervical collar is in place at the time of my exam. Patient pending clearance of C-spine by emergency department physician. Prior admission on 10/29/2017 reviewed. All medication listed at time of admission has been reconciled. Past History Past Medical History: GERD, hypertension, hypothyroidism, other (See HPI) Past Surgical History: thyroidectomy, hysterectomy, tonsillectomy, Other (Left femur surgery) Social history: . denies: smoking, alcohol abuse, prescription drug abuse Family history: hypertension Medications and Allergies Allergies Allergy/AdvReac Type Severity Reaction Status Date / Time No Known Allergies Allergy Unverified 06/16/14 12:09 Home Medications Medication Instructions Recorded Confirmed Last Taken Type Carvedilol [Coreg] 6.25 mg PO BID #60 10/31/17 10/29/17 10/29/17 Rx Levothyroxine [Synthroid] 100 mcg PO QAM #30 10/31/17 10/29/17 10/29/17 Rx Losartan/Hydrochlorothiazide 1 tab PO DAILY #30 18 10/29/17 Unknown Rx [Losartan-Hctz 50-12.5 mg Tab] Nortriptyline [Pamelor] 10 mg PO QHS #30 10/31/17 10/29/17 Unknown Rx cloNIDine [Catapres] 0.1 mg PO BID #60 10/31/17 10/29/17 10/29/17 Rx levETIRAcetam [Keppra TAB] 750 mg PO BID #60 tablet 10/31/17 Unknown Rx Active Meds: Active Medications Sodium Chloride (Nacl 0.9% 1000 Ml) 1,000 mls @ 999 mls/hr IV BOLUS ONE Stop: 12/31/19 19:34 Diltiazem HCl (Cardizem/D5w 100mg/100ml) 100 mg in 100 mls @ 5 mls/hr IV TITR RUBI; Protocol Review of Systems ROS unobtainable: due to mental status Exam - Constitutional Vitals: Temp Pulse Resp BP Pulse Ox 200 H 18 135/85 97 12/31/19 17:40 12/31/19 17:40 12/31/19 17:40 12/31/19 17:40 General appearance: Present: mild distress - EENT Eyes: Present: PERRL ENT: hearing intact, clear oral mucosa, hearing decreased - Neck Neck: Present: supple, normal ROM - Respiratory Respiratory effort: normal Respiratory: bilateral: CTA - Cardiovascular Rhythm: regular (Tachycardia) - Extremities Extremities: pulses symmetrical, No edema Peripheral Pulses: within normal limits - Abdominal General gastrointestinal: Present: soft, non-tender, non-distended, normal bowel sounds Female genitourinary: Present: normal - Integumentary Integumentary: Present: clear, dry - Musculoskeletal Musculoskeletal: generalized weakness - Psychiatric Psychiatric: no appropriate mood/affect, no intact judgment & insight, no memory intact - Neurologic Neurologic: CNII-XII intact, no focal deficits, moves all extremities, no gait normal HEART Score - HEART Score Troponin: Troponin T < 0.010 ng/mL (0.00-0.029) 12/31/19 18:01 Results - Labs CBC & Chem 7: 12/31/19 18:01 12/31/19 18:01 Labs: Abnormal lab results 12/31/19 12/31/19 12/31/19 Range/Units 18:01 18:01 18:01 WBC 11.8 H (4.5-11.0) K/mm3 RDW 12.8 L (13.2-15.2) % Plt Count 522 H (140-440) K/mm3 Monocytes % (Manual) 8.0 H (0.0-7.3) % Basophils % (Manual) 3.0 H (0.0-1.8) % Seg Neutrophils # Man 7.9 H (1.8-7.7) K/mm3 Monocytes # (Manual) 0.9 H (0.0-0.8) K/mm3 Basophils # (Manual) 0.4 H (0.0-0.1) K/mm3 APTT 43.4 H (24.2-36.6) Sec. Thrombin Time 13.3 L (15.1-19.6) Sec. Sodium 121 L (137-145) mmol/L Chloride 83.1 L (98-107) mmol/L Carbon Dioxide 17 L (22-30) mmol/L Glucose 151 H (65-100) mg/dL CK-MB (CK-2) Rel Index 5.4 H (0-4) Assessment and Plan - Patient Problems (1) Supraventricular tachycardia Status: Acute Plan to address problem: Patient admitted to IMCU, IV Cardizem drip, supportive care, echocardiogram pend ing at time of admission. Cardiology consulted in ED. Thyroid panel, supportive care. (2) Hypothyroidism Status: Acute Qualifiers: Hypothyroidism type: acquired Qualified Code(s): E03.9 - Hypothyroidism, unspecified Plan to address problem: Thyroid panel, supportive care, continue Synthroid therapy. (3) Gastroesophageal reflux disease Status: Acute Qualifiers: Esophagitis presence: without esophagitis Qualified Code(s): K21.9 - Gastro-esophageal reflux disease without esophagitis Plan to address problem: PPI therapy, supportive care. (4) Hypertension Status: Acute Qualifiers: Hypertension type: essential hypertension Qualified Code(s): I10 - Essential (primary) hypertension Plan to address problem: Monitor blood pressure every shift, continue medical management, supportive care. (5) Hyponatremia syndrome Status: Acute Plan to address problem: IV fluid resuscitation therapy, BMP, repeat BMP in a.m., neurochecks. (6) Acidosis, metabolic Status: Acute Plan to address problem: BMP, IV fluid resuscitation therapy, repeat BMP in a.m. IV bicarbonate therapy. (7) DVT prophylaxis Status: Acute Plan to address problem: SCD to bilateral lower extremities while in bed, prophylactic heparin. (8) Advance care planning Status: Acute Plan to address problem: Disease education conducted, patient is full code, +30 minutes.
--- NOTE | 2019-12-31 19:25 | XRay Report ---
CHEST 1 VIEW INDICATION / CLINICAL INFORMATION: stroke. COMPARISON: 09/27/2014 FINDINGS: SUPPORT DEVICES: None. HEART / MEDIASTINUM: No significant abnormality. LUNGS / PLEURA: Few increased markings are seen which appear to be chronic. No pneumothorax. ADDITIONAL FINDINGS: External brace appears to be in place. IMPRESSION: 1. No significant change Signer Name: Saurav Yu MD Signed: 12/31/2019 7:20 PM Workstation Name: [id number]
[2019-12-31] MEDS ORDERED: SODIUM BICARB 8.4% 50 MEQ/50 ML SYRINGE IV ONE (19:58)
[2019-12-31 20:14] LABS: Free T4 (Free Thyroxine) 2.18 ng/dL (0.76-1.46)
[2019-12-31] MEDS ORDERED: MORPHINE 4 MG/1 ML INJ IV ONE (21:24)
[2019-12-31] MEDS ORDERED: DIPHtheria,PERTUSSIS(ACELL),TETANUS VACCINE/PF 0.5 ML VIAL IM ONE ×2 (21:31→22:41)
[2019-12-31 21:37] LABS: Bilirubin,Urine NEG (Negative); Blood,Urine SM (Negative); Color,Urine Yellow (Yellow); Protein,Urine <15 mg/dL mg/dL (Negative); Urobilinogen,Urine < 2.0 mg/dL (<2.0)
[2019-12-31] MEDS ORDERED: TETANUS,DIPHTHERIA TOXOID ADULT 0.5 ML INJ IM ONE (22:00)
[2020-01-01] MEDS ORDERED: MORPHINE 2 MG/1 ML INJ ONE (00:22)
[2020-01-01] MEDS ORDERED: oxyCODONE /ACETAMINOPHEN 5-325MG TAB PO ONE (04:23)
[2020-01-01 05:25] LABS: BUN/Creatinine Ratio 16; Blood Urea Nitrogen 13 mg/dL (7-17); Hemolysis Index 0
[2020-01-01] MEDS ORDERED: cloNIDine 0.1 MG TAB PO SCH (10:00)
[2020-01-01] MEDS ORDERED: LOSARTAN PO SCH (10:00)
[2020-01-01] MEDS ORDERED: HYDROCHLOROTHIAZIDE PO SCH (10:00)
[2020-01-01] MEDS: carvediloL 6.25 MG TAB PO SCH ×2 (11:07→14:41)
[2020-01-01] MEDS: levETIRAcetam 500 MG TAB PO SCH ×3 (11:07→21:50)
[2020-01-01] MEDS: LEVOTHYROXINE 100 MCG TAB PO SCH (11:07)
--- NOTE | 2020-01-01 12:31 | Progress Note ---
Assessment and Plan / Supraventricular tachycardia Patient admitted to [facility], s/p IV Cardizem drip, echocardiogram results pending. Cardiology consulted in ED. ordered Thyroid panel, resume home BB dose /Hypothyroidism Thyroid panel, supportive care, continue Synthroid therapy. / Gastroesophageal reflux disease PPI therapy, supportive care. /Hypertension Monitor blood pressure every shift, continue medical management with home meds, supportive care. / Hyponatremia, mild IV fluid resuscitation therapy, BMP, repeat BMP in a.m., /Acidosis, metabolic - resolved with iv fluid / DVT prophylaxis lovenox / Advance care planning Disease education conducted, patient is full code 12/31: Off Cardizem drip, resume home beta-kristie dose. Wait for 2D echo results and cardiology recommendation. We will transfer to telemetry. Brief History: The patient is a 63-year-old woman who was brought to the hospital following a syncopal episode at home. She was treated in the emergency room with intravenous Cardizem, and has reverted to a stable sinus rhythm. The patient reports that she has had 2 prior episodes of syncope, but is uncertain if she has a previous diagnosis of SVT. cardiology consulted, pt now NSR. Physical exam: GENERAL: well-developed and well-nourished elderly white female lying on bed appeared to be in no discomfort. HEENT: Normocephalic. Atraumatic. No conjunctival congestion or icterus. Patient has moist mucous membranes. NECK: Supple. Trachea midline. CHEST/LUNGS: Clear to auscultated bilaterally, breathing nonlabored. No wheezes crackles or rhonchi. HEART/CARDIOVASCULAR: Regular in rate and rhythm. S1 and S2 positive. ABDOMEN: Abdomen is soft, nontender. Patient has normal bowel sounds. SKIN: There is no rash. Warm and dry. NEURO: No focal motor deficit. Follows command. MUSCULOSKELETAL: No joint effusion or tenderness. EXTRIMITY: No edema, no cyanosis or clubbing. PSYCH: Cooperative. Subjective Date of service: 01/01/20 Interval history: Patient seen and examined. Medical records and medication list reviewed. No acute event overnight noted by the RN. Patient denies any chest pain or difficulty breathing. Patient is tolerating diet. She is off Cardizem drip, getting 2D echo at the bedside Discussed plan of care at bedside with patient. Objective - Constitutional Vitals: Vital Signs - 12hr 01/01/20 01/01/20 01/01/20 00:31 00:41 00:51 Temperature Pulse Rate 69 70 68 Pulse Rate [ From Monitor] Respiratory 17 17 15 Rate Blood Pressure 88/49 88/49 88/49 O2 Sat by Pulse 92 91 96 Oximetry 01/01/20 01/01/20 01/01/20 01:01 01:11 01:21 Temperature Pulse Rate 68 83 79 Pulse Rate [ From Monitor] Respiratory 16 23 19 Rate Blood Pressure 88/49 91/55 91/55 O2 Sat by Pulse 97 97 95 Oximetry 01/01/20 01/01/20 01/01/20 01:31 01:41 01:51 Temperature Pulse Rate 73 74 75 Pulse Rate [ From Monitor] Respiratory 21 21 19 Rate Blood Pressure 91/55 91/55 91/55 O2 Sat by Pulse 97 97 97 Oximetry 01/01/20 01/01/20 01/01/20 02:00 02:11 02:21 Temperature Pulse Rate 76 77 74 Pulse Rate [ From Monitor] Respiratory 17 18 16 Rate Blood Pressure 108/60 108/60 108/60 O2 Sat by Pulse 97 97 97 Oximetry 01/01/20 01/01/20 01/01/20 02:31 02:41 02:45 Temperature Pulse Rate 72 71 71 Pulse Rate [ From Monitor] Respiratory 15 17 Rate Blood Pressure 108/60 108/60 O2 Sat by Pulse 97 97 Oximetry 01/01/20 01/01/20 01/01/20 02:51 03:01 03:11 Temperature Pulse Rate 72 74 71 Pulse Rate [ From Monitor] Respiratory 12 18 18 Rate Blood Pressure 108/60 97/53 97/53 O2 Sat by Pulse 95 98 98 Oximetry 01/01/20 01/01/20 01/01/20 03:21 03:31 03:41 Temperature Pulse Rate 74 72 75 Pulse Rate [ From Monitor] Respiratory 20 17 20 Rate Blood Pressure 97/53 97/53 97/53 O2 Sat by Pulse 98 93 95 Oximetry 01/01/20 01/01/20 01/01/20 03:51 04:00 04:01 Temperature 98.1 F Pulse Rate 73 Pulse Rate [ From Monitor] Respiratory 22 Rate Blood Pressure 97/53 119/53 O2 Sat by Pulse 97 96 Oximetry 01/01/20 01/01/20 01/01/20 04:10 04:14 04:20 Temperature Pulse Rate Pulse Rate [ 71 From Monitor] Respiratory 18 Rate Blood Pressure 119/53 O2 Sat by Pulse 97 96 95 Oximetry 01/01/20 01/01/20 01/01/20 04:31 04:41 04:51 Temperature Pulse Rate Pulse Rate [ From Monitor] Respiratory Rate Blood Pressure 119/53 119/53 119/53 O2 Sat by Pulse 95 95 95 Oximetry 01/01/20 01/01/20 01/01/20 05:01 05:11 05:21 Temperature Pulse Rate 79 Pulse Rate [ From Monitor] Respiratory 21 Rate Blood Pressure 119/53 119/53 119/53 O2 Sat by Pulse 95 95 95 Oximetry 01/01/20 01/01/20 01/01/20 05:31 05:41 05:51 Temperature Pulse Rate 78 74 77 Pulse Rate [ From Monitor] Respiratory 17 19 21 Rate Blood Pressure 119/53 119/53 119/53 O2 Sat by Pulse 95 97 95 Oximetry 01/01/20 01/01/20 06:00 08:00 Temperature 97.9 F Pulse Rate 77 Pulse Rate [ From Monitor] Respiratory Rate Blood Pressure O2 Sat by Pulse Oximetry - Labs CBC & Chem 7: 12/31/19 18:01 01/02/20 04:00 Labs: Abnormal lab results 12/31/19 12/31/19 12/31/19 Range/Units 18:01 18:01 18:01 WBC 11.8 H (4.5-11.0) K/mm3 RDW 12.8 L (13.2-15.2) % Plt Count 522 H (140-440) K/mm3 Monocytes % (Manual) 8.0 H (0.0-7.3) % Basophils % (Manual) 3.0 H (0.0-1.8) % Seg Neutrophils # Man 7.9 H (1.8-7.7) K/mm3 Monocytes # (Manual) 0.9 H (0.0-0.8) K/mm3 Basophils # (Manual) 0.4 H (0.0-0.1) K/mm3 APTT 43.4 H (24.2-36.6) Sec. Thrombin Time 13.3 L (15.1-19.6) Sec. Sodium 121 L (137-145) mmol/L Potassium (3.6-5.0) mmol/L Chloride 83.1 L (98-107) mmol/L Carbon Dioxide 17 L (22-30) mmol/L Glucose 151 H (65-100) mg/dL CK-MB (CK-2) Rel Index 5.4 H (0-4) Free T4 (0.76-1.46) ng/dL Urine WBC (Auto) (0.0-6.0) /HPF 12/31/19 12/31/19 01/01/20 Range/Units 19:35 21:28 04:13 WBC (4.5-11.0) K/mm3 RDW (13.2-15.2) % Plt Count (140-440) K/mm3 Monocytes % (Manual) (0.0-7.3) % Basophils % (Manual) (0.0-1.8) % Seg Neutrophils # Man (1.8-7.7) K/mm3 Monocytes # (Manual) (0.0-0.8) K/mm3 Basophils # (Manual) (0.0-0.1) K/mm3 APTT (24.2-36.6) Sec. Thrombin Time (15.1-19.6) Sec. Sodium 127 L (137-145) mmol/L Potassium 3.2 L (3.6-5.0) mmol/L Chloride 87.6 L (98-107) mmol/L Carbon Dioxide (22-30) mmol/L Glucose (65-100) mg/dL CK-MB (CK-2) Rel Index (0-4) Free T4 2.18 H (0.76-1.46) ng/dL Urine WBC (Auto) 14.0 H (0.0-6.0) /[facility] HEART Score - HEART Score Troponin: Troponin T < 0.010 ng/mL (0.00-0.029) 12/31/19 18:01
[2020-01-01] MEDS ORDERED: POTASSIUM CHLORIDE ER 20 MEQ TAB PO ONE (16:00)
[2020-01-01] MEDS ORDERED: HYDROcodone/ACETAMINOPHEN 5-325 MG TAB PO PRN (16:55)
--- NOTE | 2020-01-01 17:12 | Consultation ---
History of Present Illness Consult date: 01/01/20 Consult reason: tachycardia History of present illness: The patient is a 63-year-old woman who was brought to the hospital following a syncopal episode at home. It is unclear if she received any resuscitative therapies prior to arrival to the emergency room. 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 She was treated in the emergency room with intravenous Cardizem, and has reverted to a stable sinus rhythm. The patient reports that she has had 2 prior episodes of syncope, but is uncertain if she has a previous diagnosis of SVT. She does follow with a regional environmental manager on a regular basis and states that she had an echocardiogram and a stress test within the past year both negative. Currently she is comfortable, awake and alert and oriented x3, no cardiac complaints. Past History Past Medical History: GERD, hypertension, hypothyroidism Past Surgical History: thyroidectomy, hysterectomy, tonsillectomy, Other (Left femur surgery) Social history: . denies: smoking, alcohol abuse, prescription drug abuse Family history: hypertension Medications and Allergies Allergies Allergy/AdvReac Type Severity Reaction Status Date / Time No Known Allergies Allergy Unverified 06/16/14 12:09 Home Medications Medication Instructions Recorded Confirmed Last Taken Type Carvedilol [Coreg] 6.25 mg PO BID #60 10/31/17 12/31/19 10/29/17 Rx Levothyroxine [Synthroid] 100 mcg PO QAM #30 10/31/17 12/31/19 10/29/17 Rx Losartan/Hydrochlorothiazide 1 tab PO DAILY #30 10/31/17 12/31/19 Unknown Rx [Losartan-Hctz 50-12.5 mg Tab] Nortriptyline [Pamelor] 10 mg PO QHS #30 10/31/17 12/31/19 Unknown Rx cloNIDine [Catapres] 0.1 mg PO BID #60 10/31/17 12/31/19 10/29/17 Rx levETIRAcetam [Keppra TAB] 750 mg PO BID #60 tablet 10/31/17 12/31/19 Unknown Rx Active Meds: Active Medications Acetaminophen/Hydrocodone Bitart ([place] 5/325) 1 each PO Q8H PRN PRN Reason: Pain, Moderate (4-6) Carvedilol (Coreg) 6.25 mg PO BID [facility] Last Admin: 01/01/20 14:41 Dose: Not Given Documented by: Diltiazem HCl (Cardizem/D5w 100mg/100ml) 100 mg in 100 mls @ 5 mls/hr IV TITR [facility]; Protocol Last Titration: 12/31/19 23:31 Dose: 0 mg/hr, 0 mls/hr Documented by: Levetiracetam (Keppra) 750 mg PO BID [facility] Last Admin: 01/01/20 14:42 Dose: Not Given Documented by: Levothyroxine Sodium (Synthroid) 100 mcg PO QAM@0600 [facility] Last Admin: 01/01/20 11:07 Dose: 100 mcg Documented by: Nortriptyline HCl (Pamelor) 10 mg PO QHS [facility] Sodium Chloride (Sodium Chloride Flush Syringe 10 Ml) 10 ml IV BID [facility] Last Admin: 01/01/20 11:08 Dose: 10 ml Documented by: Sodium Chloride (Sodium Chloride Flush Syringe 10 Ml) 10 ml IV PRN PRN PRN Reason: LINE FLUSH Review of Systems Cardiovascular: syncope, no chest pain, no orthopnea, no palpitations, no rapid/irregular heart beat, no edema, no lightheadedness, no shortness of breath Physical Examination Vital Signs Pulse Resp BP Pulse Ox 200 H 18 135/85 97 12/31/19 17:40 12/31/19 17:40 12/31/19 17:40 12/31/19 17:40 General appearance: no acute distress HEENT: Positive: PERRL Neck: Positive: neck supple Cardiac: Positive: Reg Rate and Rhythm Lungs: Positive: clear to auscultation Neuro: Positive: Grossly Intact Abdomen: Positive: Soft Female genitourinary: deferred Skin: Positive: Clear Extremities: Absent: edema Results 12/31/19 18:01 01/01/20 04:13 Cardiac Enzymes 12/31/19 12/31/19 Range/Units 18:01 18:01 AST 23 (5-40) units/L CK-MB (CK-2) 3.1 (0.0-4.0) ng/mL Coagulation 12/31/19 Range/Units 18:01 PT 13.1 (12.2-14.9) Sec. INR 0.98 (0.87-1.13) APTT 43.4 H (24.2-36.6) Sec. CBC 12/31/19 Range/Units 18:01 WBC 11.8 H (4.5-11.0) K/mm3 RBC 3.79 (3.65-5.03) M/mm3 Hgb 11.7 (10.1-14.3) gm/dl Hct 34.5 (30.3-42.9) % Plt Count 522 H (140-440) K/mm3 Comprehensive Metabolic Panel 12/31/19 12/31/19 01/01/20 Range/Units 18:01 18:01 04:13 Sodium 121 L 127 L (137-145) mmol/L Potassium 3.9 3.2 L (3.6-5.0) mmol/L Chloride 83.1 L 87.6 L (98-107) mmol/L Carbon Dioxide 17 L 25 D (22-30) mmol/L BUN 14 13 (7-17) mg/dL Creatinine 1.0 0.8 (0.7-1.2) mg/dL Glucose 151 H 82 (65-100) mg/dL Calcium 9.9 9.0 (8.4-10.2) mg/dL Direct Bilirubin < 0.2 (0-0.2) mg/dL Indirect Bilirubin 0.3 mg/dL AST 23 (5-40) units/L ALT 14 (7-56) units/L Alkaline Phosphatase 83 (35-129) units/L Total Protein 7.0 (6.3-8.2) g/dL Albumin 3.9 (3.9-5) g/dL EKG interpretations - EKG Other supraventricular dysrythmias: orthodromic AV reentry Assessment and Plan - Patient Problems (1) Supraventricular tachycardia Current Visit: Yes Status: Acute Plan to address problem: We will treat SVT with optimal beta-blockers, and request the patient's outpatient records for review prior to engaging further cardiac work-up.
[2020-01-01] MEDS: METOPROLOL TARTRATE 25 MG TAB PO SCH (17:24)
[2020-01-01] MEDS ORDERED: NORTRIPTYLINE 10 MG CAP PO SCH (22:00)
[2020-01-02] MEDS: METOPROLOL TARTRATE 25 MG TAB PO SCH ×2 (02:12→10:17)
[2020-01-02 04:53] LABS: Calcium 9.1 mg/dL (8.4-10.2)
[2020-01-02] MEDS: LEVOTHYROXINE 100 MCG TAB PO SCH (05:24)
--- NOTE | 2020-01-02 08:53 | Progress Note ---
Assessment and Plan - Patient Problems (1) Supraventricular tachycardia Current Visit: Yes Status: Acute Plan to address problem: Supraventricular tachycardia reverted to sinus rhythm on metoprolol for suppression LVEF 55-60% by echo this presentation normal perfusion thallium stress test 08/2017 Subjective Date of service: 01/02/20 Interval history: Patient has no complaints. Stable sinus rhythm on telemetry Objective Vital Signs Temp Pulse Pulse Resp BP Pulse Ox 01/02/20 04:00 68 96 01/02/20 03:51 98.2 F 73 18 151/84 84 01/02/20 00:00 82 01/01/20 23:55 97.8 F 82 18 149/68 94 01/01/20 23:42 78 18 94 01/01/20 22:51 79 138/69 95 01/01/20 22:41 81 138/69 94 01/01/20 22:31 75 20 138/69 94 01/01/20 22:21 74 20 138/69 95 01/01/20 22:11 84 22 138/69 95 01/01/20 22:01 82 22 117/55 92 01/01/20 22:00 77 01/01/20 21:51 78 16 117/55 96 01/01/20 21:41 78 15 117/55 92 01/01/20 21:31 80 23 117/55 94 01/01/20 21:21 80 17 158/73 94 01/01/20 21:11 80 21 158/73 94 01/01/20 21:01 78 20 158/73 62 L 01/01/20 20:50 79 19 158/73 94 01/01/20 20:01 77 16 158/73 90 01/01/20 20:00 98.4 F 77 18 94 01/01/20 19:01 77 20 123/62 01/01/20 18:01 87 24 123/62 93 01/01/20 17:01 83 22 114/60 95 01/01/20 16:00 98.2 F 80 17 103/59 92 01/01/20 15:00 75 21 105/64 94 01/01/20 14:01 80 24 106/54 96 01/01/20 13:00 82 15 107/56 92 01/01/20 12:00 97.7 F 75 14 96/51 96 05/17/20 11:00 82 17 76/39 94 01/01/20 10:01 82 15 83/62 94 01/01/20 09:01 87 19 118/60 94 - Physical Examination General: No Apparent Distress HEENT: Positive: PERRL Neck: Positive: neck supple Cardiac: Positive: Reg Rate and Rhythm Neuro: Positive: Grossly Intact Abdomen: Positive: Soft Skin: Positive: Clear Extremities: Absent: edema - Labs and Meds Comprehensive Metabolic Panel 01/02/20 Range/Units 04:00 Sodium 128 L (137-145) mmol/L Potassium 4.1 D (3.6-5.0) mmol/L Chloride 88.4 L (98-107) mmol/L Carbon Dioxide 26 (22-30) mmol/L BUN 12 (7-17) mg/dL Creatinine 0.9 (0.7-1.2) mg/dL Glucose 88 (65-100) mg/dL Calcium 9.1 (8.4-10.2) mg/dL - EKG Other supraventricular dysrythmias: orthodromic AV reentry
[2020-01-02] MEDS ORDERED: LEVOTHYROXINE 75 MCG TAB PO SCH (10:00)
[2020-01-02] MEDS: levETIRAcetam 500 MG TAB PO SCH (10:17)
--- NOTE | 2020-01-02 13:47 | Discharge Summary ---
Providers - Providers Date of Admission: 12/31/19 19:27 Date of discharge: 01/02/20 Attending physician: BRENNA GREENWOOD 12/31/19 19:27 Consult to Physician [CONS] Routine Comment: Consulting Provider: JENNIFER MARINA Physician Instructions: Reason For Exam: SVT on cardizem drip Primary care physician: [employer] Hospitalization Condition: Stable Pertinent studies: CXR head CT cervical spine CT 2d echo Hospital course: The patient is a 63-year-old woman who was brought to the hospital following a s yncopal episode at home. As noted, she presented with a supraventricular tachycardia, rate of 200. Treated with intravenous diltiazem, and then managed with oral metoprolol. Her CT head showed no acute process Echocardiogram showed normal left ventricular systolic function with ejection fraction 55 to 60%, moderate calcification of the aortic valve leaflets but with no significant aortic stenosis. The patient reports that she has had 2 prior episodes of syncope, but is uncertain if she has a previous diagnosis of SVT. Cardiology consulted, and recommended outpatient follow-up with electrophysiology. Her T4 level noted elevated and reduced synthroid dose. Patient was then discharged home in stable condition. Discharge diagnosis: Syncope, due to SVT, CT head was unremarkable SVT, likely from elevated free T4 - adjusted synthroid dose UTI, present on admission, placed on abx Hypothyroidism, continue Synthroid therapy - adjusted dose, need repeat TSH/T4 level as outpt Gastroesophageal reflux disease, PPI therapy Hypertension , continue medical management with home meds Seizure disorder, cont AED Hyponatremia, mild Acidosis, metabolic - resolved with iv fluid Physical exam: GENERAL: well-developed and well-nourished elderly white female lying on bed appeared to be in no discomfort. HEENT: Normocephalic. Atraumatic. No conjunctival congestion or icterus. Patient has moist mucous membranes. NECK: Supple. Trachea midline. CHEST/LUNGS: Clear to auscultated bilaterally, breathing nonlabored. No wheezes crackles or rhonchi. HEART/CARDIOVASCULAR: Regular in rate and rhythm. S1 and S2 positive. ABDOMEN: Abdomen is soft, nontender. Patient has normal bowel sounds. SKIN: There is no rash. Warm and dry. NEURO: No focal motor deficit. Follows command. MUSCULOSKELETAL: No joint effusion or tenderness. EXTRIMITY: No edema, no cyanosis or clubbing. PSYCH: Cooperative. Disposition: DC-01 TO HOME OR SELFCARE Time spent for discharge: 34 minutes Core Measure Documentation - Palliative Care Palliative Care/ Comfort Measures: Not Applicable - Core Measures Any of the following diagnoses?: none Exam - Constitutional Vitals: Temp Pulse Resp BP Pulse Ox 98.5 F 68 18 137/71 96 01/02/20 09:31 01/02/20 12:00 01/02/20 10:00 01/02/20 10:17 01/02/20 09:31 Plan Activity: fall precautions Weight Bearing Status: Non-Weight Bearing Diet: low fat Follow up with: PRIMARY CAREMD [Primary Care Provider] - 3-5 Days JENNIFER MARINA MD [Staff Physician] - 7 Days Prescriptions: levoFLOXacin [Levaquin TAB] 500 mg PO Q24HR #5 tablet Metoprolol [Lopressor TAB] 25 mg PO Q8H #90 tablet Levothyroxine [Synthroid] 75 mcg PO DAILY@0600 #30 tablet
[2020-01-02] MEDS ORDERED: levoFLOXacin 500 MG TAB PO SCH (14:00)
[2020-01-02 16:12] VITALS: BP 121/77
[2020-01-02] MEDS ORDERED: ENOXAPARIN 40 MG/0.4 ML INJ SUB-Q SCH (22:00)
== END 2020-01-02 15:55 | disposition home or self-care (01) | DRG 309 ==
LOC: ED 17:33 → IMCU 19:27 → 4A 01-01 23:34
PROVIDERS: ADMIT Internal Medicine; ATTEND Internal Medicine
PROC: 3E0234Z Introduction of Serum, Toxoid and Vaccine into Muscle, Percutaneous Approach (ICD-10-PCS; principal; 2019-12-31)
DX: I47.1 Supraventricular tachycardia (principal); E87.1 Hypo-osmolality and hyponatremia; E87.2 Acidosis; N39.0 Urinary tract infection, site not specified; E03.9 Hypothyroidism, unspecified; I10 Essential (primary) hypertension; K21.9 Gastro-esophageal reflux disease without esophagitis; R41.82 Altered mental status, unspecified; G40.909 Epilepsy, unspecified, not intractable, without status epilepticus; Z23 Encounter for immunization; Z90.89 Acquired absence of other organs; Z90.710 Acquired absence of both cervix and uterus; Z82.49 Family history of ischemic heart disease and other diseases of the circulatory system
CPT/HCPCS: 36415; 70450; 71045; 72125; 80048; 80076; 81001; 82140; 82550; 82553; 82962; 84439; 84443; 84484; 85007; 85025; 85610; 85670; 85730; 87076; 87086; 87186; 90714; 90715; 93005; 93306; G0378; J0153; J2270; J2405; J7030